=== PATIENT | female | born 1995 | race Caucasian/White ===

== ENCOUNTER 2020-06-03 14:21 | Emergency (ER) | payer MEDICAID, SELFPAY ==
--- NOTE | 2020-06-03 | XR_ITS ---
EXAMINATION: XR FINGER, RIGHT CLINICAL INFORMATION: Jammed right fourth digit with bruising and pain COMPARISON: None TECHNIQUE: 3 views of the right fourth digit. FINDINGS: The bones and soft tissues are normal. No fracture. Alignment is anatomic. Joint spaces are maintained. XR/XR finger RT min 2V IMPRESSION: Unremarkable right fourth digit exam.
[2020-06-03 14:27] VITALS: BP 117/87; PULSE 95; RESP 16; TEMP 36.8; O2SAT 100; BMI 19.3
--- NOTE | 2020-06-03 15:06 | ED.EXTPRO ---
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 States she can move it but it is very painful, she states initially was bleeding but it has stopped bleeding since then. She did take some Tylenol which helped with the pain. 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 Related Data Allergies Allergy/AdvReac Type Severity Reaction Status Date / Time [place] And Derivatives Allergy Unknown HIVES Unverified 02/04/20 18:48 [CITRUS] diphenhydramine Allergy Unknown THROAT Unverified 02/04/20 18:48 [From BENADRYL] CLOSED UP orange [ORANGE] Allergy Unknown HIVES Unverified 02/04/20 18:48 NERDS CANDY Allergy Unknown FACIAL Uncoded 02/04/20 18:48 SWELLING, HIVES Review of Systems Review of Systems: Yes all other systems are reviewed and are negative [facility] Past Medical History Medical History No known health problems Social History Social History Advance Directives: No Advance Directives Information Provided: Yes Physical Exam Vital Signs: Vital Signs: Last Vital Signs Temp 98.2 F 06/03/20 14:27 Pulse 95 06/03/20 14:27 Resp 16 06/03/20 14:27 BP 117/87 06/03/20 14:27 Pulse Ox 100 06/03/20 14:27 Body Mass Index 19.3 Const: General: cooperative, healthy appearing, comfortable, no acute distress and well developed Nutritional Appearance: average body habitus Orientation/consciousness: patient oriented x3 Resp: Effort & Inspection: normal respiratory effort and able to speak in complete sentences Neuro: General: patient oriented x3 Extrem: Other: Right 4th digit, small areas of ecchymosis, no bleeding or signs of infection noted. Patient is NVI and has full range of motion on all fingers and the wrist although with some pain when moving in the right 4th digit Course Course Course Narrative: Patient is a 24-year-old female who tripped and fell last night jamming her right 4th digit into the ground, it is bruised, however she has full range of motion and is and the eye, x-ray being done but not completed. 4pm negative for fracture, will juan-tape & discharge home MDM - Extremity (Nontraumatic) Imaging Data finger xray: Attestation: I personally reviewed and interpreted this imaging study as follows: My impression: Negative for fracture Radiologist's impression: [address] [address] XRay Report Signed Patient: Bryan JuarezR#: [id number] : 1995Acct:[id number] Age/Sex: Date: 06/03/20 Loc: .ED Attending Dr: Ordering Physician: Generic ED Physician Date of Service: 06/03/20 Procedure(s): XR finger RT min 2V Accession Number(s): [id number] cc: Generic ED Physician~ EXAMINATION: XR FINGER, RIGHT CLINICAL INFORMATION: Jammed right fourth digit with bruising and pain COMPARISON: None TECHNIQUE: 3 views of the right fourth digit. FINDINGS: The bones and soft tissues are normal. No fracture. Alignment is anatomic. Joint spaces are maintained. XR/XR finger RT min 2V IMPRESSION: Unremarkable right fourth digit exam. Discharge Plan Discharge Clinical Impression: Finger sprain Qualifiers: Encounter type: initial encounter Finger: ring finger Sprain of finger site: interphalangeal joint Laterality: right Qualified Code(s): S63.634A - Sprain of interphalangeal joint of right ring finger, initial encounter Patient Disposition: Home, Self-Care Instructions: Finger Sprain (ED) Referrals: Brenda Pepe MD [Primary Care Provider] - 2 days (Please follow-up with your PCP if not feeling better in the next 5-7 days)
== END 2020-06-03 16:20 | disposition home or self-care (01) ==
PROVIDERS: Emergency Provider Emergency Medicine; PCP Internal Medicine
DX: S63.634A Sprain of interphalangeal joint of right ring finger, initial encounter (principal); X50.1XXA Overexertion from prolonged static or awkward postures, initial encounter; Y93.89 Activity, other specified; Y92.9 Unspecified place or not applicable; Y99.9 Unspecified external cause status
CPT/HCPCS: 73140; 99283

== ENCOUNTER 2022-03-30 17:05 | Emergency (ER) | payer MEDICAID, SELFPAY ==
--- NOTE | ~2022-03-30 | XR_ITS ---
EXAMINATION: XR HAND, RIGHT CLINICAL INFORMATION: Evaluation of ganglion cyst COMPARISON: 06/03/2020 TECHNIQUE: PA, lateral, and oblique views of the right hand. FINDINGS: The bones and soft tissues are normal. No fracture. Alignment is anatomic. Joint spaces are maintained. No erosions or soft tissue calcifications. XR/XR hand RT min 3V IMPRESSION: No acute osseous abnormality of the right hand.
[2022-03-30 17:45] VITALS: BP 126/78; PULSE 65; RESP 18; TEMP 36.1; O2SAT 98; BMI 20.2
--- NOTE | 2022-03-30 17:59 | ED.GENADULT ---
HPI - General Adult General Chief complaint: General Medical Stated complaint: Cyst on finger Time Seen by Provider: 03/30/22 18:53 Source: patient Mode of arrival: ambulatory Limitations: no limitations History of Present Illness HPI narrative: Patient is a 26 year old assigned female at with no reported medical history presenting to the emergency department today with right hand pain. Patient states that in between her first and second digit, she has had a cyst get bigger and get smaller. Patient states that the cyst isn't there all the time. 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 Patient denies any dizziness, lightheadedness, abdominal pain, nausea, vomiting, fever, chills, blurry vision, double vision, loss of vision, chest pain, difficulty breathing, shortness of breath, back pain, night sweats, pain with urination, increased urinary frequency, increased urinary urgency, blood in her urine or stool, syncope or a near syncopal episode, recent trauma or falls, bowel incontinence, bladder incontinence, bowel retention, bladder retention, or any other complaints at this time. Onset (ago): day(s) Location: right and upper extremity Radiation: non-radiation Severity: mild Quality: dull Pain Consistency: intermittent Relieving factors: none Exacerbating factors: none Associated symptoms: denies other symptoms Treatments prior to arrival: none Related Data Previous Rx's Medication Instructions Recorded prednisone 20 mg tablet 20 mg PO DAILY 7 days #7 tabs 03/30/22 Allergies Allergy/AdvReac Type Severity Reaction Status Date / Time [place] And Derivatives Allergy Unknown HIVES Unverified 02/04/20 18:48 [CITRUS] diphenhydramine Allergy Unknown THROAT Unverified 02/04/20 18:48 [From BENADRYL] CLOSED UP orange [ORANGE] Allergy Unknown HIVES Unverified 02/04/20 18:48 NERDS CANDY Allergy Unknown FACIAL Uncoded 02/04/20 18:48 SWELLING, HIVES Review of Systems Constitutional: Constitutional: Reports no additional constitutional complaints, Denies chills, Denies fever(s) and Denies night sweats Eyes: Eyes: Reports no additional eye complaints, Denies blurry vision, Denies change in vision, Denies diplopia, Denies eye discharge, Denies loss of vision and Denies eye pain ENT: Denies dizziness Cardiovascular: Cardiovascular: Reports no additional cardiovascular complaints, Denies chest pain, Denies lightheadedness, Denies Loss of Consciousness and Denies dyspnea Respiratory: Respiratory: Reports no additional respiratory complaints and Denies dyspnea Gastrointestinal: Gastrointestinal: Reports no additional gastrointestinal complaints, Denies abdominal pain, Denies melena, Denies hematochezia, Denies change in bowel habits and Denies change in stool character Genitourinary: Genitourinary: Denies hematuria, Denies urinary frequency, Denies dysuria, Denies urinary incontinence, Denies urinary hesitancy and Denies urinary urgency Musculoskeletal: Musculoskeletal: Reports no additional musculoskeletal complaints, Denies numbness and Denies tingling Comments: right hand cyst Neurologic: Denies dizziness, Denies loss of vision, Denies numbness and Denies tingling Psychiatric: Psychiatric: Reports no additional psychiatric complaints Endocrine: Endocrine: Reports no additional endocrine complaints Hematologic/Lymphatic: Hematologic/Lymphatic: Reports no additional hematologic/lymphatic complaints Allergic/Immunologic: Allergic/Immunologic: Reports no additional allergic/immunologic complaints PMFSH Past Medical History Attestation statement: The following information was validated with the patient. Source: old records reviewed Medical History No known health problems Social History Social History Advance Directives: No Advance Directives Information Provided: Yes Physical Exam ED Vital Signs: Vital Signs - 24 hr 03/30/22 17:45 Temperature 97.0 F Pulse Rate 65 Respiratory Rate 18 Blood Pressure 126/78 Pulse Oximetry 98 Oxygen Delivery Method Room Air BMI result Body Mass Index 20.2 Const General: cooperative, no acute distress, alert and awake Nutritional Appearance: well nourished Orientation/consciousness: patient oriented x3 Limitations: no limitations HENMT Head: Yes normal to inspection and Yes atraumatic Ears: hearing grossly normal bilaterally and external ears normal General nose exam: Normal external nose present, no nasal discharge noted and no epistaxis Face and sinus: Yes normal facial exam, No abrasion and No laceration Mouth: Normal oral and palatal mucosa present, no drooling and no muffled voice Eyes General: appearance normal, both eyes and all related structures Periorbital: periorbital findings normal Eyelids: Yes eyelids normal Conjunctivae: conjunctivae normal Pupils: Equal, round and reactive pupils present EOM: EOMs intact bilaterally Neck Neck: Yes normal visual inspection, Yes full ROM and Yes no lymphadenopathy Chest Chest palpation & inspection: normal inspection of the chest Resp Effort & Inspection: normal respiratory effort and able to speak in complete sentences Auscultation: clear to auscultation bilaterally Cardio Rate: regular rate Rhythm: regular rhythm GI Inspection: Yes normal to inspection Neuro General: patient oriented x3 and moves all extremities Cranial nerves: Yes Equal, round and reactive pupils present Cognition (Neuro): normal cognition Motor exam (neuro): 5/5 motor strength present throughout Sensory Exam: Normal double simultaneous stimulation for sensation Coordination: [id number] test normal Extrem General: Yes normal to inspection, Yes full ROM and Yes capillary refill normal Psych Appearance: grossly normal Mental Status: mental status grossly normal Affect: normal affect Attitude: cooperative Thought process: Normal thought process present Thought content: Normal thought content present Insight: Good insight present (Psych) Course Course Course Narrative: RME completed by Jennifer Panchal PA-C at 1750. Right hand XR ordered. Suspicious for ganglion cyst. Patient placed back in waiting room awaiting room availability and imaging result. Medical Decision Making MDM Narrative Medical decision making narrative: Patient is a 26 year old assigned female at with no reported medical history presenting to the emergency department today with right hand pain. Patient's physical exam was unremarkable. Patient's right hand x-ray showed no acute process. Patient's clinical presentation is most consistent with a ganglion cyst. I explained my physical exam findings as well as all test results to the patient. I answered all questions asked by the patient. I stressed the importance of the patient taking her medication as prescribed. I stressed the importance of the patient following up with her primary care provider and an orthopedic provider. I stressed the importance of the patient returning to the emergency department immediately if her symptoms were to worsen or if she were to develop any dizziness, shortness of breath, difficulty breathing, chest pain, blurry vision, loss of vision, nausea, vomiting, abdominal pain, fever, chills, back pain, or any other complaints. Patient verbalized agreement and understanding with this treatment plan and discharge. Medical Records Medical records reviewed: Yes I reviewed the patient's medical records. Imaging Data Right hand x-ray: Attestation: I personally reviewed and interpreted this imaging study as follows: My impression: No acute process. Radiologist's impression: EXAMINATION: XR HAND, RIGHT CLINICAL INFORMATION: Evaluation of ganglion cyst? COMPARISON: 06/03/2020? TECHNIQUE: PA, lateral, and oblique views of the right hand. FINDINGS: The bones and soft tissues are normal. No fracture. Alignment is anatomic. Joint spaces are maintained. No erosions or soft tissue calcifications.? XR/XR hand RT min 3V IMPRESSION: No acute osseous abnormality of the right hand. Dictated By: Joey Chun MD Signed By: Electronically signed by Joey Chun MD 03/30/22 6026 Discharge Plan Discharge Clinical Impression: Ganglion cyst Patient Disposition: Home, Self-Care Additional Instructions: Follow up with your primary care provider and an orthopedic provider. Return to the emergency department immediately if your symptoms worsen or if you develop any dizziness, shortness of breath, difficulty breathing, chest pain, blurry vision, loss of vision, nausea, vomiting, abdominal pain, fever, chills, back pain, or any other complaints. Prescriptions: New prednisone 20 mg tablet 20 mg PO DAILY 7 Days Qty: 7 0RF Referrals: [facility] [Provider Group] (Call to establish and follow up with an orthopedic provider. ) Brenda Pepe MD [Primary Care Provider] - Stand Alone Forms: Work/School Release Print Language: Macedonian
== END 2022-03-30 19:06 | disposition home or self-care (01) ==
PROVIDERS: Emergency Provider Student in an Organized Health Care Education/Training Program; PCP Internal Medicine
DX: M67.441 Ganglion, right hand (principal); M79.641 Pain in right hand
CPT/HCPCS: 73130; 99282; 99283

== ENCOUNTER 2022-10-12 20:44 | Day surgery (SDC) | payer MEDICAID, SELFPAY ==
--- NOTE | ~2022-10-12 | US_ITS ---
EXAMINATION: US OBSTETRICAL ULTRASOUND CLINICAL INFORMATION: Follow-up ectopic. COMPARISON: Ultrasound OB 10/12/2022. Positive FDG LMP: Unknown. Gestational age by maternal dates is unknown. Estimated date of delivery by maternal dates is unknown. TECHNIQUE: Transabdominal and transvaginal imaging pelvis is performed. Since the last exam FINDINGS: Again visualized is a right adnexal masslike structure with a new gestational sac visualized. The pole is not seen at this time. There is free fluid in the cul-de-sac and right adnexa which has increased in size. Findings are strongly suspicious for an ectopic. The uterus is anteverted and unremarkable. The endometrial lining is normal measuring 4 mm. No intrauterine gestational sac visualized.. The uterus measures 7.2 x 3.3 x 4.5 cm and volume 55.98 mL. The right ovary measures 2.2 x 1.9 x 1.5 cm and appears unremarkable. Left ovary measures 3.4 x 2.6 x 3.3 cm and appears unremarkable. US/US OB pelvic and transvaginal IMPRESSION: Findings strongly suggestive of an right adnexal ectopic with increase in the right adnexal and cul-de-sac echogenic fluid. The uterus and ovaries are otherwise unremarkable. Results were conveyed to the largest Dr. Vivek Flanagan personally in the ER at 10:30 AM
--- NOTE | ~2022-10-12 | US_ITS ---
EXAMINATION: US OBSTETRICAL ULTRASOUND CLINICAL INFORMATION: Right pelvic pain and vaginal bleeding. LMP unknown. COMPARISON: CT abdomen/pelvis 08/24/2017. TECHNIQUE: Transabdominal and transvaginal images obtained with the patient's consent. FINDINGS: The uterus is anteverted and measures 7.2 x 3.6 x 4.6 cm. No evidence of intrauterine . The endometrium measures 0.5 cm in thickness. There is a 1.3 x 0.8 x 0.9 cm masslike observation in the region of the right adnexa, surrounded by multiple loops of bowel and from the ovary. There is no discrete associated vascularity within this masslike observation. The ovaries are normal in morphology with preserved flow at the moment of this examination. The right ovary measures 3.4 x 1.6 x 1.7 cm and the left ovary measures 3 x 2.3 x 2.5 cm. There is a small volume of free fluid in the cul-de-sac, simple in appearance. US/US OB pelvic and transvaginal IMPRESSION: No evidence of intrauterine gestation. Indeterminate masslike observation in the right adnexa. It is not clear if this represents a loop of bowel, and an ectopic is not excluded. Recommend correlation with quantitative beta-hCG and OB consultation for further management. A short-term follow-up ultrasound is recommended. This critical result was discussed with Dr Martin at 10/13/2022 12:35 AM and it was ascertained that the content and urgency of the report was understood at the time of direct communication.
[2022-10-12 20:51] VITALS: BP 145/78; PULSE 78; RESP 20; TEMP 36.3; O2SAT 98; BMI 22.2
[2022-10-12 21:07] LABS: MANUAL DIFF FLAG NO
[2022-10-12 21:11] LABS: Basophils Absolute Auto 0.1 X10*3/uL (0.0-0.2); Basophils Percent Auto 0.6 % (0-2); Eosinophils Absolute Auto 0.1 X10*3/uL (0.0-0.4); Eosinophils Percent Auto 0.8 % (0-4); Hematocrit 44.7 % (37.0-47.0); Hemoglobin 15.6 g/dl (12.0-16.0); Imm Gran Abs Auto 0.01 X10*3/uL (0.00-0.03); Imm Gran Pct Auto 0.1 % (0.0-0.4); Lymphocytes Percent Auto 22.9 % (20-40); Mean Corpuscular HGB Conc 34.9 g/dl (31.0-35.0); Mean Corpuscular Hemoglobin 33.2 pg (27.0-33.0); Mean Corpuscular Volume 95.1 fL (80.0-98.0); Monocytes Absolute Auto 0.5 X10*3/uL (0.1-1.2); Neutrophils Absolute Auto 6.1 x10*3/uL (2.0-8.3); Neutrophils Percent Auto 69.6 % (45-73); Platelet Count 277 X10*3/uL (160-400); Red Cell Distribution Width 11.4 % (11.0-16.0); White Blood Count 8.7 X10*3/uL (4.8-10.8)
[2022-10-12 21:20] LABS: Appearance Urine Cloudy; Color Urine Dark Yellow; Glucose Urine UA Negative (Negative); Leukocyte Esterase Urine Small (1+) (Negative); Nitrite Urine Positive (Negative); Specific Gravity - Urine >= 1.030 (1.005-1.025); UMIC TRIGGER UACC YES; Urine Blood Large (3+) (Negative); Urine Ketones 80 mg/dL (Negative); Urine Protein 30 (1+) mg/dL (Neg-Trace)
[2022-10-12 21:29] LABS: Anion Gap 12 (12-20); Blood Urea Nitrogen 8 mg/dL (9-16); Calcium 10.2 mg/dL (8.4-10.2); Carbon Dioxide 25 mmol/L (22-29); Chloride 104 mmol/L (96-108); Creatinine Clr Calc Pharmacy 76.5; Estimated Glomerular Filt Rate > 60; Glucose Random 102 mg/dL (60-115); Potassium 4.1 mmol/L (3.3-5.1); Sodium 137 mmol/L (135-145)
[2022-10-12 21:30] LABS: HCG Quantitative 219 mIU/mL
[2022-10-12 21:35] LABS: Bacteria Urine 4+ (None Seen); Hyaline Casts Urine 0-2 /LPF (0-2); RBC Urine 0-2 /HPF (0-2); UACC Culture Trigger YES; WBC Urine 21-50 /HPF (0-5)
[2022-10-12 22:58] VITALS: BP 136/67; PULSE 56; RESP 18; TEMP 36.7; O2SAT 98
[2022-10-12] MEDS: Nitrofurantoin Monohyd/M-Cryst 100 MG CAPSULE PO (23:44)
--- NOTE | 2022-10-12 23:52 | ED.PREGNANCY ---
HPI - General Chief complaint: Vaginal Bleeding Stated complaint: 4 Weeks /Abd pain and spotting Time Seen by Provider: 10/12/22 21:52 Source: patient Mode of arrival: ambulatory History of Present Illness HPI Narrative: 27-year-old female who presents with vaginal bleeding and right lower quadrant cramping for 3 days. Patient states that she took 2 home tests that were positive and reports that her low LMP-10/01/2022. She also reports that she has had some pain and burning on urination. Related Data Previous Rx's Medication Instructions Recorded prednisone 20 mg tablet 20 mg PO DAILY 7 days #7 tabs 03/30/22 nitrofurantoin 100 mg PO Q12H 7 days #14 caps 10/13/22 monohydrate/macrocrystals 100 mg capsule (Macrobid) Allergies Allergy/AdvReac Type Severity Reaction Status Date / Time [place] And Derivatives Allergy Unknown HIVES Verified 10/12/22 20:50 [CITRUS] diphenhydramine Allergy Unknown THROAT Verified 10/12/22 20:50 [From BENADRYL] CLOSED UP orange [ORANGE] Allergy Unknown HIVES Verified 10/12/22 20:50 NERDS CANDY Allergy Unknown FACIAL Uncoded 02/04/20 18:48 SWELLING, HIVES Review of Systems Review of Systems: Pertinent positives and negatives as stated in HPI [facility] Past Medical History Source: nursing notes reviewed Medical History No known health problems Social History Social History Smoked in Last 30 Days: Yes Use of substances other than those prescribed or required for medical reasons: No Advance Directives: No Advance Directives Information Provided: No Patient : Yes Physical Exam Vital Signs: Vital Signs: Last Vital Signs Temp 97.8 F 10/13/22 03:15 Pulse 48 L 10/13/22 03:15 Resp 12 10/13/22 03:15 BP 123/84 10/13/22 03:15 Pulse Ox 99 10/13/22 03:15 O2 Del Method Room Air 10/13/22 03:15 BMI result Body Mass Index 22.2 VITAL SIGNS: Reviewed. GENERAL: Well developed, well nourished, in no acute distress. HEAD: Normocephalic/atraumatic EYES: PERRLA, EOMI EARS: Ext canals without abnormality NOSE: Nares patent bilateral OROPHARYNX: no oral lesions noted, posterior pharynx clear NECK: Supple, no adenopathy LUNGS: Normal breath sounds. No adventitious sounds or accessory muscle use. SpO2<98> CARDIOVASCULAR: Regular rate and rhythm without noted murmurs ABDOMEN: Soft, tenderness in right lower quadrant, non-distended with bowel sounds. MUSCULOSKELETAL: No tenderness, deformities, or effusions noted on gross inspection. EXTREMITIES: No cyanosis, clubbing or edema. SKIN: Inspection of the skin reveals no rashes NEUROLOGIC: Alert and oriented x 4. Strength and sensation to light touch were grossly intact x 4. Medications Administered Discontinued Medications Generic Name Dose Route Start Last Admin Trade Name Freq PRN Reason Stop Dose Admin Acetaminophen 975 mg 10/13/22 00:45 10/13/22 01:16 Acetaminophen 325 Mg Tablet PO 10/13/22 00:46 975 mg ONCE ONE Administration Nitrofurantoin Macrocrystals 100 mg 10/12/22 23:10 10/12/22 23:44 Nitrofurantoin Monohyd/M-Cryst 100 Mg Capsule PO 10/12/22 23:11 100 mg ONCE ONE Administration Medical Decision Making Medical Decision Making MDM Narrative: 27-year-old female with beta hCG-219, although very low level and low clinical suspicion for a ruptured ectopic, will proceed with ultrasound, patient is neither febrile nor does she have rigors, urinalysis is nitrite positive in the blood that is observed is likely secondary to the vaginal bleeding. Otherwise I reviewed the remaining lab work which appears to be chronically stable. I reviewed all investigations and there are no findings to suggest acute appendicitis, ovarian torsion, bowel obstruction, there is only a small amount simple pelvic free fluid, patient received initial antibiotics as well as 975 mg of Tylenol. I discussed case with Dr. Simon who recommends keeping the patient overnight and repeating the ultrasound in the morning. I informed the patient all of the findings and she understands that our recommendation is that she stay overnight with us and be re-evaluated in the morning. She is agreeable with the plan. In the meantime, we are going to get Rh testing though she is less than 7 weeks at this time. Patient is B positive, ultrasound has been placed and imaging study will be signed out to the oncoming provider. Differential Diagnosis Please see the discussion above Lab Data 10/12/22 21:02 10/12/22 21:02 Labs: Lab Results 10/12/22 10/12/22 10/12/22 Range/Units 21:02 21:02 21:02 WBC 8.7 (4.8-10.8) X10*3/uL RBC 4.70 (4.20-5.50) X10*6/uL Hgb 15.6 (12.0-16.0) g/dl Hct 44.7 (37.0-47.0) % MCV 95.1 (80.0-98.0) fL MCH 33.2 H (27.0-33.0) pg MCHC 34.9 (31.0-35.0) g/dl RDW 11.4 (11.0-16.0) % Plt Count 277 (160-400) X10*3/uL MPV 10.0 (9.4-12.3) fL Immature Gran % (Auto) 0.1 (0.0-0.4) % Neut % (Auto) 69.6 (45-73) % Lymph % (Auto) 22.9 (20-40) % [place] % (Auto) 6.0 (2-11) % Eos % (Auto) 0.8 (0-4) % Baso % (Auto) 0.6 (0-2) % Lymph # (Auto) 2.0 (1.2-4.9) X10*3/uL [place] # (Auto) 0.5 (0.1-1.2) X10*3/uL Eos # (Auto) 0.1 (0.0-0.4) X10*3/uL Baso # (Auto) 0.1 (0.0-0.2) X10*3/uL Abs Immat Gran (auto) 0.01 (0.00-0.03) X10*3/uL Absolute Neuts (auto) 6.1 (2.0-8.3) x10*3/uL Absolute Nucleated RBC 0.000 (0.0-0.012) X10*3/uL Nucleated RBC % (auto) 0.0 (0.0-0.2) /100WBC Sodium 137 (135-145) mmol/L Potassium 4.1 (3.3-5.1) mmol/L Chloride 104 (96-108) mmol/L Carbon Dioxide 25 (22-29) mmol/L Anion Gap 12 (12-20) BUN 8 L (9-16) mg/dL Creatinine 0.76 (0.5-1.4) mg/dL Estim Creat Clear Calc 76.5 Estimated GFR > 60 Random Glucose 102 (60-115) mg/dL Calcium 10.2 (8.4-10.2) mg/dL Beta HCG, Quant 219 mIU/mL Urine Color Urine Appearance Urine pH (5.0-9.0) Ur Specific [place] (1.005-1.025) Urine Protein (Neg-Trace) mg/dL Urine Glucose (UA) (Negative) mg/dL Urine Ketones (Negative) mg/dL Urine Blood (Negative) Urine Nitrite (Negative) Ur Leukocyte Esterase (Negative) Urine RBC (0-2) /HPF Urine WBC (0-5) /HPF Ur Squamous Epith Cells (0-2) /HPF Urine Bacteria (None Seen) Hyaline Casts (0-2) /LPF Blood Type B Positive 10/12/22 Range/Units 21:05 WBC (4.8-10.8) X10*3/uL RBC (4.20-5.50) X10*6/uL Hgb (12.0-16.0) g/dl Hct (37.0-47.0) % MCV (80.0-98.0) fL MCH (27.0-33.0) pg MCHC (31.0-35.0) g/dl RDW (11.0-16.0) % Plt Count (160-400) X10*3/uL MPV (9.4-12.3) fL Immature Gran % (Auto) (0.0-0.4) % Neut % (Auto) (45-73) % Lymph % (Auto) (20-40) % [place] % (Auto) (2-11) % Eos % (Auto) (0-4) % Baso % (Auto) (0-2) % Lymph # (Auto) (1.2-4.9) X10*3/uL [place] # (Auto) (0.1-1.2) X10*3/uL Eos # (Auto) (0.0-0.4) X10*3/uL Baso # (Auto) (0.0-0.2) X10*3/uL Abs Immat Gran (auto) (0.00-0.03) X10*3/uL Absolute Neuts (auto) (2.0-8.3) x10*3/uL Absolute Nucleated RBC (0.0-0.012) X10*3/uL Nucleated RBC % (auto) (0.0-0.2) /100WBC Sodium (135-145) mmol/L Potassium (3.3-5.1) mmol/L Chloride (96-108) mmol/L Carbon Dioxide (22-29) mmol/L Anion Gap (12-20) BUN (9-16) mg/dL Creatinine (0.5-1.4) mg/dL Estim Creat Clear Calc Estimated GFR Random Glucose (60-115) mg/dL Calcium (8.4-10.2) mg/dL Beta HCG, Quant mIU/mL Urine Color Dark Yellow Urine Appearance Cloudy Urine pH 6.0 (5.0-9.0) Ur Specific [place] >= 1.030 H (1.005-1.025) Urine Protein 30 (1+) H (Neg-Trace) mg/dL Urine Glucose (UA) Negative (Negative) mg/dL Urine Ketones 80 (Negative) mg/dL Urine Blood Large (3+) H (Negative) Urine Nitrite Positive H (Negative) Ur Leukocyte Esterase Small (1+) H (Negative) Urine RBC 0-2 (0-2) /HPF Urine WBC 21-50 H (0-5) /HPF Ur Squamous Epith Cells 3-5 (0-2) /HPF Urine Bacteria 4+ (None Seen) Hyaline Casts 0-2 (0-2) /LPF Blood Type Discharge Plan Discharge Clinical Impression: Vaginal bleeding, UTI (urinary tract infection) Patient Disposition: Home, Self-Care Instructions: Threatened Miscarriage (ED) Additional Instructions: Please follow-up on Saturday morning for repeat ultrasound and repeat beta hCG (the enzyme). If your bleeding worsens or year abdominal discomfort is unable to be controlled by [id number] Tylenol and the completion of antibiotics please do not hesitate to return to the emergency room. Prescriptions: New nitrofurantoin monohyd/m-cryst [Macrobid] 100 mg capsule 100 mg PO Q12H 7 Days Qty: 14 0RF Rx Instructions: must administer with a meal/food No Action prednisone 20 mg tablet 20 mg PO DAILY 7 Days Qty: 7 0RF Referrals: Vivek Simon MD [Physician] - (Need repeat US and hcg)
[2022-10-13] VITALS (12 sets, daily range): BP systolic 123–148; BP diastolic 72–88; PULSE 48–77; RESP 12–19; TEMP 36.4–36.9; O2SAT 97–100
--- NOTE | 2022-10-13 00:53 | PM.GYNCN ---
COORDINATOR OF LIBRARY SERVICES - CN: HPI Data of Consult Consult date: 10/13/22 Primary Care Provider: Unknown Physician Consult Narrative Narrative: 12: 37 am ; I was consulted on Monse Vu who is a 27 year old female who presented to the emergency room with vaginal bleeding and right lower quadrant cramping for 3 days.? The patient had positive home tests, LMP-10/01/2022.? In addition the patient is complaining of dysuria. In the ER the following workup was done: H&H within normal, HCG 219, pelvic ultrasound done UA positive for nitrites and leukocyte esterase cc:: CC: OB [facility] Past Medical History Medical History No known health problems Social History Social History Advance Directives: No Advance Directives Information Provided: Yes Meds Allergies Allergy/AdvReac Type Severity Reaction Status Date / Time [place] And Derivatives Allergy Unknown HIVES Verified 10/15/22 10:56 [CITRUS] diphenhydramine Allergy Unknown THROAT Verified 10/15/22 10:56 [From BENADRYL] CLOSED UP orange [ORANGE] Allergy Unknown HIVES Verified 10/15/22 10:56 NERDS CANDY Allergy Unknown FACIAL Uncoded 10/15/22 10:56 SWELLING, HIVES COORDINATOR OF LIBRARY SERVICES Physical Exam Vitals Vital signs: Temp Pulse Resp BP Pulse Ox O2 Del Method 98.0 F 56 18 136/67 98 Room Air 10/12/22 22:58 10/12/22 22:58 10/12/22 22:58 10/12/22 22:58 10/12/22 22:58 10/12/22 22:58 BMI result Body Mass Index 22.2 Abdomen Auscultation/Inspection/Palpation: Tenderness, Guarding and Rebound tenderness Additional Comments: Abdominal exam reported by Dr. Martin as the last of following: Soft, tenderness in right lower quadrant, non-distended with bowel sounds COORDINATOR OF [employer]RARY [employer] - Results Labs 10/12/22 21:02 10/12/22 21:02 Labs: Short CBC 10/12/22 Range/Units 21:02 WBC 8.7 (4.8-10.8) X10*3/uL Hgb 15.6 (12.0-16.0) g/dl Hct 44.7 (37.0-47.0) % Plt Count 277 (160-400) X10*3/uL BMP 10/12/22 21:02 Sodium 137 Potassium 4.1 Chloride 104 Carbon Dioxide 25 BUN 8 L Creatinine 0.76 Calcium 10.2 Urine 10/12/22 Range/Units 21:05 Urine Color Dark Yellow Urine Appearance Cloudy Urine pH 6.0 (5.0-9.0) Ur Specific [place] >= 1.030 H (1.005-1.025) Urine Protein 30 (1+) H (Neg-Trace) mg/dL Urine Glucose (UA) Negative (Negative) mg/dL Imaging US - abdomen: Radiologist's impression: ITS Impressions Pelvic/Transvag US 10/12/22 23:40 IMPRESSION: No evidence of intrauterine gestation. Indeterminate masslike observation in the right adnexa. It is not clear if this represents a loop of bowel, and an ectopic is not excluded. Recommend correlation with quantitative beta-hCG and OB consultation for further management. A short-term follow-up ultrasound is recommended. This critical result was discussed with Dr Martin at 10/13/2022 12:35 AM and it was ascertained that the content and urgency of the report was understood at the time of direct communication. Assessment and Plan (1) First trimester bleeding: Status: Acute 12:[address] Martin the differential diagnosis including but not limited to SAB, ectopic , early IUP Recommended the following: Rh status with antibody screen and keep the patient in the emergency room for observation and repeat ultrasound to determine if there is a right adnexal mass or not and will treat accordingly. (2) UTI (urinary tract infection): Status: Acute Urine culture and Macrobid 100 mg p.o. b.i.d. for 5 days. Instructions to be given to patient to come back to the emergency room in case of fever above 100.4, nausea or vomiting or flank pain. (3) Ectopic : Status: Acute 10:30 am> blood type B positive. Repeat pelvic ultrasound preliminary read by Dr. Frankel showed right adnexal mass with gestational sac seen, fluid increased in the cul-de-sac and right adnexa. No fetus seen, no IUP with ectopic strongly suspected. Discussed with the patient her clinical scenario, ectopic with fluid increased in adnexa and cul de sac in size , with right lower quadrant abdominal tenderness , rebound and guarding, pointing towards possible rupture therefore, she is not a candidate for medical treatment given the possibility of possible rupture. Recommended laparoscopic salpingostomy possible partial salpingectomy, possible laparotomy. All the pros and cons were discussed with the patient including the risks including but not limited to: Risk of bleeding, infection, possible injury to bladder, bowel, ureter, bladder, possible injury to vessels and need for blood transfusion with all its risks including HIV, hepatitis-B and C and other blood borne pathogens, possible negative impact on future fertility. All questions answered, the patient verbalized understanding agreed with the plan and signed the consent. Time Spent With Patient Time: Total time managing care of this patient today ____ minutes.
[2022-10-13] MEDS: Acetaminophen 325 MG TABLET 975 MG PO (01:16)
--- NOTE | 2022-10-13 08:25 | PC.NURSE ---
assumed care of this patient. some vaginal bleeding noted with urination only, she has some cramping but mostly feels like gas
--- NOTE | 2022-10-13 12:10 | PC.NURSE ---
OR came and picked up patient for surgery, report given
--- NOTE | 2022-10-13 12:53 | P.CONAN_ITS ---
[facility] Active Problems Active Problems: All Active Problems (Updated 10/13/22 @ 10:39 by Vivek Simon MD) Ectopic (Acute) Hemoperitoneum due to rupture of right tubal ectopic (Acute) First trimester bleeding (Acute) UTI (urinary tract infection) (Acute) Past Medical History Medical History No known health problems Family History Family history of problems with anesthesia: No Surgical History History of Problems with Anesthesia: No Social History Social History Smoked in Last 30 Days: Yes Use of substances other than those prescribed or required for medical reasons: No Advance Directives: No Advance Directives Information Provided: No Patient : Yes Meds Allergies Allergy/AdvReac Type Severity Reaction Status Date / Time [place] And Derivatives Allergy Unknown HIVES Verified 10/12/22 20:50 [CITRUS] diphenhydramine Allergy Unknown THROAT Verified 10/12/22 20:50 [From BENADRYL] CLOSED UP orange [ORANGE] Allergy Unknown HIVES Verified 10/12/22 20:50 NERDS CANDY Allergy Unknown FACIAL Uncoded 02/04/20 18:48 SWELLING, HIVES Active Medications: Current Medications Fentanyl (Fentanyl Citrate/Pf 100 Mcg/2 Ml Vial) 50 mcg IVPUSH Q5M PRN; Protocol PRN Reason: Pain, Severe (Pain Scale 7-10) Ondansetron HCl (Ondansetron Hcl 4 Mg/2 Ml Vial) 4 mg IVPUSH ONCE PRN PRN Reason: Nausea and Vomiting Oxycodone HCl (Oxycodone Hcl Immed Release 5 Mg Tablet) 5 mg PO ONCE PRN PRN Reason: Pain, Severe (Pain Scale 7-10) Exam Exam Date and Time: October 13, 2022 1253 Height,Weight and Vital Signs: Height 4 ft 11 in Weight 49.895 kg Last Vital Signs Temp 98.2 F 10/13/22 10:23 Pulse 60 10/13/22 10:23 Resp 14 10/13/22 10:23 BP 148/78 H 10/13/22 10:23 Pulse Ox 98 10/13/22 10:23 O2 Del Method Room Air 10/13/22 10:23 Pertinent Lab Results Pertinent Lab Results: Laboratory Tests 05/10/12/22 10/12/22 21:02 21:02 21:02 WBC 8.7 RBC 4.70 Hgb 15.6 Hct 44.7 MCV 95.1 MCH 33.2 H MCHC 34.9 RDW 11.4 Plt Count 277 MPV 10.0 Immature Gran % (Auto) 0.1 Neut % (Auto) 69.6 Lymph % (Auto) 22.9 Hall % (Auto) 6.0 Eos % (Auto) 0.8 Baso % (Auto) 0.6 Lymph # (Auto) 2.0 Hall # (Auto) 0.5 Eos # (Auto) 0.1 Baso # (Auto) 0.1 Abs Immat Gran (auto) 0.01 Absolute Neuts (auto) 6.1 Absolute Nucleated RBC 0.000 Nucleated RBC % (auto) 0.0 Sodium 137 Potassium 4.1 Chloride 104 Carbon Dioxide 25 Anion Gap 12 BUN 8 L Creatinine 0.76 Estim Creat Clear Calc 76.5 Estimated GFR > 60 Random Glucose 102 Calcium 10.2 Beta HCG, Quant 219 Urine Color Urine Appearance Urine pH Ur Specific [place] Urine Protein Urine Glucose (UA) Urine Ketones Urine Blood Urine Nitrite Ur Leukocyte Esterase Urine RBC Urine WBC Ur Squamous Epith Cells Urine Bacteria Hyaline Casts Blood Type B Positive 10/12/22 21:05 WBC RBC Hgb Hct MCV MCH MCHC RDW Plt Count MPV Immature Gran % (Auto) Neut % (Auto) Lymph % (Auto) Hall % (Auto) Eos % (Auto) Baso % (Auto) Lymph # (Auto) Hall # (Auto) Eos # (Auto) Baso # (Auto) Abs Immat Gran (auto) Absolute Neuts (auto) Absolute Nucleated RBC Nucleated RBC % (auto) Sodium Potassium Chloride Carbon Dioxide Anion Gap BUN Creatinine Estim Creat Clear Calc Estimated GFR Random Glucose Calcium Beta HCG, Quant Urine Color Dark Yellow Urine Appearance Cloudy Urine pH 6.0 Ur Specific [place] >= 1.030 H Urine Protein 30 (1+) H Urine Glucose (UA) Negative Urine Ketones 80 Urine Blood Large (3+) H Urine Nitrite Positive H Ur Leukocyte Esterase Small (1+) H Urine RBC 0-2 Urine WBC 21-50 H Ur Squamous Epith Cells 3-5 Urine Bacteria 4+ Hyaline Casts 0-2 Blood Type Airway Mallampati Class: I TM Dist: >3cm Neck ROM: Full Lungs: clear Assessment and Plan Assessment Anesthesia Assessment: Anesthesia Plan Discussed and Chart Reviewed Final Anesthetic Review Family History of Problems with Anesthesia: No History of Problems with Anesthesia: No NPO: No (ate a piece of saltine about 3.5 hrs ago) ASA Class: II and Emergency Final Preanesthetic Review: No Changes in Pt Med Stat, Meds/Allgs Chart Reviewed, Consent Obtained/Reviewed and Anes Risks/Benef Reviewed Patient Risk: Intermediate Procedure Risk: Low Anesthetic Plan Anesthetic Plan: GA Disposition: Standard PACU
--- NOTE | 2022-10-13 13:47 | P.BOP_ITS ---
Brief Operative Note Date of Service: 10/13/22 Pre-op diagnosis: Right ectopic tubal with hemoperitoneum by ultrasound Post-op diagnosis: other ( 250 cc of hemoperitoneum with questionable tissues versus organized clot in the pelvis, bilateral distended fallopian tubes, extensive filmy adhesions from bilateral fallopian tubes to bilateral posterior uterus, no evidence of tubal rupture) Procedure: Diagnostic laparoscopy evacuation of hemoperitoneum and pelvic tissue versus organized clot possible aborted tubal Surgeon: Vivek Simon MD Anesthesia: GETA Was an Trust Manager Assistant used for this Procedure?: No Estimated blood loss (mL): 10 Pathology: other ( tissues from the pelvis possible organ ask clots versus aborted tubal in the pelvis) Condition: stable Disposition: PACU
--- NOTE | 2022-10-13 13:50 | W.PM.OPN ---
Operative Note Operative Note Date of Service: 10/13/22 Narrative: PREOPERATIVE DIAGNOSIS:?R tubal ectopic , increase in fluid in the cul-de-sac by ultrasound possible rupture POSTOPERATIVE DIAGNOSIS:? 250 cc of hemoperitoneum, tissues in the pelvis organized clots versus aborted tubal , bilateral distended fallopian tubes with filmy adhesions to the posterior uterus, bilateral normal ovaries with no evidence of ruptured cyst, no evidence of tubal rupture Procedure: diagnostic laparoscopy evacuation of hemoperitoneum and organized blood clots versus tissue possible aborted tubal QBL: Minimal Anesthesia: GETA SURGEON:? Vivek Simon MD?? Hospital Admitting Clerk:None Complications: None Pathology: organized blood clots versus tissue possible aborted tub DESCRIPTION OF PROCEDURE:?The patient was taken to the OR where general anesthesia was easily obtained. The patient was then prepped and draped in a sterile fashion and placed in dorsal lithotomy position. A speculum was introduced into the patient?s vagina for cervical visualization. a was introduced into the patient?s cervix. The single tooth tenaculum was then removed and hemostasis was assured?using pressure. a Haile catheter?was inserted and clear urine started draining. Gloves were changed to clean ones. Attention was then drawn to the abdomen where a 10 mm longitudinal incision was done intra umbilical and carried down all the way to the fascia, which was tented?up using 2 Ramon clamps and was nicked in the midline and then extended on both end of the incision?, them using 2 pick?ups the peritoneum?was entered with Metzenbaum scissors and under direct visualization, a 10 mm Little trocar was introduced into the patient?s abdomen. Once intraperitoneal placement was confirmed with direct visualization, pneumoperitoneum was started & was easily obtained.Then, two fingerbreadths above the pubic symphysis and towards the?right lower quadrant, under direct visualization, a 5 mm trocar was then introduced into the patient?s abdomen. and a 3rd one on the left?lower quadrant was placed?in a similar manner. The patient was placed in Trendelenburg position, Inspection revealed 250 cc of hemoperitoneum, normal bilateral ovaries with no evidence ovarian cyst rupture, bilateral distended fallopian tubes with filmy adhesions bilaterally the posterior uterus with no evidence of tubal rupture. Suction irrigation was done, there was 2 x 3 cm tissues in the posterior pelvis looking likeeither organized clot or aborted tubal . Specimen were then removed from the patient?s Pelvis using endo bag from the 10 mm trocar through the umbilicus. Copious irrigation was done. Once good hemostasis was noted from in the patient?s pelvis, is no evidence of bleeding, pneumoperitoneum was deflated and all trocars were removed. Infraumbilical fascia was closed with 0 Vicryl and interrupted suture. The skin was closed with 4-0 Vicryl. The Right and left?lower quadrant ports were closed with 0 Vicryl. Bupivicaine 0.25 10 cc were injected subcuticularly in the 3 incisions. Then speculum was put back in the vagina inspection revealed?hemostasis at the site of the tenaculum, the?sponge stick was removed?from the patient's vagina and Haile was draining clear urine was taken out too. Sponge, lap and needle counts were correct x2. The patient was taken to the recovery room in stable condition. HCG quantitative ordered stat in the recovery room dropped from 219 yesterday to 116 today. Discussed with the patient postoperatively after the patient awakened from anesthesia in the recovery the intraoperative findings showing no evidence of rupture, 250 cc of hemoperitoneum with a pelvic tissue either organized clot or aborted tubal . recommended repeat hCG in 48 hours follow it down to non levels. Instructions given to patient to come to the emergency room for hCG blood draw In 48 hours will check the results and treat according and follow-up in the office with hCG in another 24 hours. Signs and symptoms of tubal rupture /SAB were discussed with the patient she is to come back to emergency room in case of heavy bleeding, abdominal pain, incisional redness, temperature above 100.4, nausea or vomiting.
[2022-10-13 14:41] LABS: HCG Quantitative 116 mIU/mL
[2022-10-13] MEDS: Acetaminophen 1,000 MG/100 ML PIGGYBACK 400 MG IV (14:43)
== END 2022-10-13 15:19 | disposition home or self-care (01) ==
LOC: HO.ED 10-13 10:30 → HO.SSS 10-13 10:39
PROVIDERS: Obstetrics & Gynecology; Emergency Provider Student in an Organized Health Care Education/Training Program; Visit Provider Internal Medicine
PROC: (CPT 59150; principal; 2022-10-13 11:30)
DX: O00.90 Unspecified ectopic pregnancy without intrauterine pregnancy (principal); O20.9 Hemorrhage in early pregnancy, unspecified; O26.891 Other specified pregnancy related conditions, first trimester; K66.1 Hemoperitoneum; O23.41 Unspecified infection of urinary tract in pregnancy, first trimester; N39.0 Urinary tract infection, site not specified; Z3A.01 Less than 8 weeks gestation of pregnancy; Z88.8 Allergy status to other drugs, medicaments and biological substances
CPT/HCPCS: 59150; 36415; 76801; 76817; 80048; 81001; 84702; 85025; 86900; 86901; 87086; 88305; 99285; J0131; J1100; J2250; J2405; J2795; J3010

== ENCOUNTER 2022-10-15 10:54 | Emergency (ER) | payer MEDICAID, SELFPAY ==
[2022-10-15 10:57] VITALS: BP 144/77; PULSE 62; RESP 19; TEMP 36.6; O2SAT 98; BMI 22.2
--- NOTE | 2022-10-15 11:01 | ED_ITS ---
HPI - General Adult General Chief complaint: General Medical Stated complaint: Needs labs drawn (Zerbe) Time Seen by Provider: 10/15/22 11:00 Source: patient Mode of arrival: ambulatory Limitations: no limitations History of Present Illness HPI narrative: Patient is a 27 year old assigned female at with no reported medical history presenting to the emergency department today for follow up HCG levels after an ectopic on 10/13/2022. Patient states that she had an ectopic on 10/13/2022 and had a procedure to help with it and the OBGYN told her to come back to the ER today for a repeat HCG level. Patient states that she has had minimal incisional pain. Patient denies any dizziness, lightheadedness, nausea, vomiting, fever, chills, blurry vision, double vision, loss of vision, chest pain, difficulty breathing, shortness of breath, back pain, night sweats, pain with urination, increased urinary frequency, increased urinary urgency, blood in her stool, syncope or a near syncopal episode, recent trauma or falls, bowel incontinence, bladder incontinence, bowel retention, bladder retention, or any other complaints at this time. Related Data Previous Rx's Medication Instructions Recorded prednisone 20 mg tablet 20 mg PO DAILY 7 days #7 tabs 03/30/22 nitrofurantoin 100 mg PO Q12H 7 days #14 caps 10/13/22 monohydrate/macrocrystals 100 mg capsule (Macrobid) oxycodone 5 mg tablet 5 mg PO ONCE PRN Pain, Severe 10/13/22 (Pain Scale 7-10) #20 tabs Allergies Allergy/AdvReac Type Severity Reaction Status Date / Time [place] And Derivatives Allergy Unknown HIVES Verified 10/15/22 10:56 [CITRUS] diphenhydramine Allergy Unknown THROAT Verified 10/15/22 10:56 [From BENADRYL] CLOSED UP orange [ORANGE] Allergy Unknown HIVES Verified 10/15/22 10:56 NERDS CANDY Allergy Unknown FACIAL Uncoded 10/15/22 10:56 SWELLING, HIVES Review of Systems Constitutional: Constitutional: Reports no additional constitutional complaints, Denies chills, Denies fever(s) and Denies night sweats Eyes: Eyes: Reports no additional eye complaints, Denies blurry vision, Denies change in vision, Denies diplopia, Denies eye discharge, Denies loss of vision and Denies eye pain ENT: Denies dizziness Cardiovascular: Cardiovascular: Reports no additional cardiovascular complaints, Denies chest pain, Denies lightheadedness, Denies Loss of Consciousness and Denies dyspnea Respiratory: Respiratory: Reports no additional respiratory complaints and Denies dyspnea Gastrointestinal: Gastrointestinal: Reports no additional gastrointestinal complaints, Denies abdominal pain, Denies melena, Denies hematochezia, Denies change in bowel habits and Denies change in stool character Genitourinary: Genitourinary: Denies hematuria, Denies urinary frequency, Denies dysuria, Denies urinary incontinence, Denies urinary hesitancy and Denies urinary urgency Musculoskeletal: Musculoskeletal: Reports no additional musculoskeletal complaints, Denies numbness and Denies tingling Neurologic: Denies dizziness, Denies loss of vision, Denies numbness and Denies tingling Psychiatric: Psychiatric: Reports no additional psychiatric complaints Endocrine: Endocrine: Reports no additional endocrine complaints Hematologic/Lymphatic: Hematologic/Lymphatic: Reports no additional hematologic/lymphatic complaints Allergic/Immunologic: Allergic/Immunologic: Reports no additional allergic/immunologic complaints PMFSH Past Medical History Attestation statement: The following information was validated with the patient. Source: old records reviewed and nursing notes reviewed Medical History No known health problems Social History Social History Advance Directives: No Advance Directives Information Provided: Yes Physical Exam ED Vital Signs: Vital Signs - 24 hr 10/15/22 10:57 Temperature 98 F Pulse Rate 62 Respiratory Rate 19 Blood Pressure 144/77 H Pulse Oximetry 98 Oxygen Delivery Method Room Air BMI result Body Mass Index 22.2 Const General: cooperative, no acute distress, alert and awake Nutritional Appearance: well nourished Orientation/consciousness: patient oriented x3 Limitations: no limitations HENMT Head: Yes normal to inspection and Yes atraumatic Ears: hearing grossly normal bilaterally and external ears normal General nose exam: Normal external nose present, no nasal discharge noted and no epistaxis Face and sinus: Yes normal facial exam, No abrasion and No laceration Mouth: Normal oral and palatal mucosa present, no drooling and no muffled voice Eyes General: appearance normal, both eyes and all related structures Periorbital: periorbital findings normal Eyelids: Yes eyelids normal Conjunctivae: conjunctivae normal Pupils: Equal, round and reactive pupils present EOM: EOMs intact bilaterally Neck Neck: Yes normal visual inspection, Yes full ROM and Yes no lymphadenopathy Chest Chest palpation & inspection: normal inspection of the chest Resp Effort & Inspection: normal respiratory effort and able to speak in complete sentences GI Inspection: Yes normal to inspection Palpation (GI): Soft to palpation, not firm, nontender, no guarding and not rigid Neuro General: patient oriented x3 and moves all extremities Cranial nerves: Yes Equal, round and reactive pupils present Cognition (Neuro): normal cognition Motor exam (neuro): 5/5 motor strength present throughout Sensory Exam: Normal double simultaneous stimulation for sensation Coordination: [id number] test normal Extrem General: Yes normal to inspection, Yes full ROM and Yes capillary refill normal Psych Appearance: grossly normal Mental Status: mental status grossly normal Affect: normal affect Attitude: cooperative Thought process: Normal thought process present Thought content: Normal thought content present Insight: Good insight present (Psych) Medical Decision Making Medical Decision Making MDM Narrative: Patient is a 27 year old assigned female at with no reported medical history presenting to the emergency department today for HCG repeat. Patient's physical exam was unremarkable. Patient's blood work showed an HCG of 211 which is higher than her previous os 116 on 10/13/2022. I spoke with OBGYN call center operations manager who came and examined the patient. They decided that the patient would undergo methotrexate treatment. OBGYN call center operations manager obtained all appropriate consents and f illed out all appropriate forms. Patient is to have a repeat HCG drawn on 10/18/2022. I explained my physical exam findings as well as all test results to the patient. I answered all questions asked by the patient. I stressed the importance of the patient taking her medication as prescribed. I stressed the importance of the patient following up with her primary care provider and an OBGYN. I stressed the importance of the patient returning to the emergency department immediately if her symptoms were to worsen or if she were to develop any dizziness, shortness of breath, difficulty breathing, chest pain, blurry vision, loss of vision, nausea, vomiting, abdominal pain, fever, chills, back pain, or any other complaints. Patient verbalized agreement and understanding with this treatment plan and discharge. Differential Diagnosis Differential Diagnoses: The differential diagnosis associated with the presentation includes persistent ectopic Consult Healthcare Provider Management of the patient was discussed with: Mint Machine Operator (spoke to OBHELENN as note d in the MDM portion of this chart. ) Lab Data MDM Lab Attestation statement: I reviewed the patient's lab results. 10/15/22 11:58 10/15/22 11:58 Labs: Lab Results 10/15/22 10/15/22 10/15/22 Range/Units 11:14 11:58 11:58 WBC 6.9 (4.8-10.8) X10*3/uL RBC 4.57 (4.20-5.50) X10*6/uL Hgb 15.2 (12.0-16.0) g/dl Hct 43.8 (37.0-47.0) % MCV 95.8 (80.0-98.0) fL MCH 33.3 H (27.0-33.0) pg MCHC 34.7 (31.0-35.0) g/dl RDW 11.5 (11.0-16.0) % Plt Count 252 (160-400) X10*3/uL MPV 10.1 (9.4-12.3) fL Immature Gran % (Auto) 0.4 (0.0-0.4) % Neut % (Auto) 74.6 H (45-73) % Lymph % (Auto) 16.4 L (20-40) % [place] % (Auto) 7.4 (2-11) % Eos % (Auto) 0.6 (0-4) % Baso % (Auto) 0.6 (0-2) % Lymph # (Auto) 1.1 L (1.2-4.9) X10*3/uL [place] # (Auto) 0.5 (0.1-1.2) X10*3/uL Eos # (Auto) 0.0 (0.0-0.4) X10*3/uL Baso # (Auto) 0.0 (0.0-0.2) X10*3/uL Abs Immat Gran (auto) 0.03 (0.00-0.03) X10*3/uL Absolute Neuts (auto) 5.1 (2.0-8.3) x10*3/uL Absolute Nucleated RBC 0.000 (0.0-0.012) X10*3/uL Nucleated RBC % (auto) 0.0 (0.0-0.2) /100WBC PT 10.2 (10.0-13.1) SEC INR 0.9 (0.9-1.1) APTT 27.4 (26.0-36.4) SEC Sodium (135-145) mmol/L Potassium (3.3-5.1) mmol/L Chloride (96-108) mmol/L Carbon Dioxide (22-29) mmol/L Anion Gap (12-20) BUN (9-16) mg/dL Creatinine (0.5-1.4) mg/dL Estim Creat Clear Calc Estimated GFR Random Glucose (60-115) mg/dL Calcium (8.4-10.2) mg/dL Total Bilirubin (0.0-1.0) mg/dL AST (5-31) U/L ALT (0-31) U/L Alkaline Phosphatase (39-117) U/L Total Protein (6.5-8.0) g/dL Albumin (3.5-5.0) g/dL Beta HCG, Quant 211 mIU/mL 10/15/22 Range/Units 11:58 WBC (4.8-10.8) X10*3/uL RBC (4.20-5.50) X10*6/uL Hgb (12.0-16.0) g/dl Hct (37.0-47.0) % MCV (80.0-98.0) fL MCH (27.0-33.0) pg MCHC (31.0-35.0) g/dl RDW (11.0-16.0) % Plt Count (160-400) X10*3/uL MPV (9.4-12.3) fL Immature Gran % (Auto) (0.0-0.4) % Neut % (Auto) (45-73) % Lymph % (Auto) (20-40) % [place] % (Auto) (2-11) % Eos % (Auto) (0-4) % Baso % (Auto) (0-2) % Lymph # (Auto) (1.2-4.9) X10*3/uL [place] # (Auto) (0.1-1.2) X10*3/uL Eos # (Auto) (0.0-0.4) X10*3/uL Baso # (Auto) (0.0-0.2) X10*3/uL Abs Immat Gran (auto) (0.00-0.03) X10*3/uL Absolute Neuts (auto) (2.0-8.3) x10*3/uL Absolute Nucleated RBC (0.0-0.012) X10*3/uL Nucleated RBC % (auto) (0.0-0.2) /100WBC PT (10.0-13.1) SEC INR (0.9-1.1) APTT (26.0-36.4) SEC Sodium 140 (135-145) mmol/L Potassium 4.2 (3.3-5.1) mmol/L Chloride 104 (96-108) mmol/L Carbon Dioxide 26 (22-29) mmol/L Anion Gap 14 (12-20) BUN 9 (9-16) mg/dL Creatinine 0.81 (0.5-1.4) mg/dL Estim Creat Clear Calc 71.7 Estimated GFR > 60 Random Glucose 101 (60-115) mg/dL Calcium 10.4 H (8.4-10.2) mg/dL Total Bilirubin 1.7 H (0.0-1.0) mg/dL AST 17 (5-31) U/L ALT 16 (0-31) U/L Alkaline Phosphatase 66 (39-117) U/L Total Protein 7.5 (6.5-8.0) g/dL Albumin 5.0 (3.5-5.0) g/dL Beta HCG, Quant mIU/mL Critical Care Time Critical Care Time Critical Care Time: Yes Total Critical Care Time: 30 Attestation: I spent 30 minutes of Critical Care Time with this patient. This does not i nclude time spent on separately reported billable procedures. Discharge Plan Discharge Clinical Impression: , ectopic Patient Disposition: Home, Self-Care Instructions: Ectopic (DC) Additional Instructions: Take the medication the OBGYN prescribed as written. Follow up with your primary care provider and your OBGYN. Return to the emergency department immediately if your symptoms worsen or if you develop any dizziness, shortness of breath, difficulty breathing, chest pain, blurry vision, loss of vision, nausea, vomiting, abdominal pain, fever, chills, back pain, or any other complaints. Prescriptions: No Action prednisone 20 mg tablet 20 mg PO DAILY 7 Days Qty: 7 0RF nitrofurantoin monohyd/m-cryst [Macrobid] 100 mg capsule 100 mg PO Q12H 7 Days Qty: 14 0RF Rx Instructions: must administer with a meal/food oxycodone 5 mg Tablet 5 mg PO ONCE PRN (Reason: Pain, Severe (Pain Scale 7-10)) Qty: 20 0RF Rx Instructions: Partial Fill upon patient request. Referrals: [facility] [Primary Care Provider] - Vivek Simon MD [Physician] - Stand Alone Forms: Work/School Release Print Language: American
[2022-10-15 11:45] LABS: HCG Quantitative 211 mIU/mL
[2022-10-15 12:03] LABS: MANUAL DIFF FLAG NO
[2022-10-15 12:05] LABS: Basophils Percent Auto 0.6 % (0-2); Eosinophils Percent Auto 0.6 % (0-4); Hematocrit 43.8 % (37.0-47.0); Hemoglobin 15.2 g/dl (12.0-16.0); Imm Gran Abs Auto 0.03 X10*3/uL (0.00-0.03); Imm Gran Pct Auto 0.4 % (0.0-0.4); Lymphocytes Absolute Auto 1.1 X10*3/uL (1.2-4.9); Lymphocytes Percent Auto 16.4 % (20-40); Mean Corpuscular HGB Conc 34.7 g/dl (31.0-35.0); Mean Corpuscular Hemoglobin 33.3 pg (27.0-33.0); Mean Corpuscular Volume 95.8 fL (80.0-98.0); Mean Platelet Volume 10.1 fL (9.4-12.3); Monocytes Absolute Auto 0.5 X10*3/uL (0.1-1.2); Monocytes Percent Auto 7.4 % (2-11); Neutrophils Absolute Auto 5.1 x10*3/uL (2.0-8.3); Neutrophils Percent Auto 74.6 % (45-73); Platelet Count 252 X10*3/uL (160-400); Red Blood Count 4.57 X10*6/uL (4.20-5.50); Red Cell Distribution Width 11.5 % (11.0-16.0); White Blood Count 6.9 X10*3/uL (4.8-10.8)
--- NOTE | 2022-10-15 12:07 | PM.GYNCN ---
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 The pole is not seen at this time. There is free fluid in the cul-de-sac and right adnexa which has increased in size. Findings are strongly suspicious for an ectopic. The uterus is anteverted and unremarkable. The endometrial lining is normal measuring 4 mm. No intrauterine gestational sac visualized.. The uterus measures 7.2 x 3.3 x 4.5 cm and volume 55.98 mL. The right ovary measures 2.2 x 1.9 x 1.5 cm and appears unremarkable. Left ovary measures 3.4 x 2.6 x 3.3 cm and appears unremarkable. UA positive for nitrites and leukocyte esterase The patient had significant abnormal exam showing right lower quadrant tenderness, guarding and rebound, so a diagnostic laparoscopy was done which showed 250 cc of hemoperitoneum with normal bilateral ovaries with no evidence of ruptured ovarian cyst, and possible tissues in the pelvis either organized clots versus aborted ectopic with no evidence of tubal rupture, evacuation of pelvic tissues and hemoperitoneum was done there was no additional bleeding, post operative hCG and done in the recovery room was 116, the patient was discharged home to be followed up in 48 hours repeat hCG and signs and symptoms of ruptured ectopic in addition to Macrobid for UTI. Blood type is B positive Today the patient stenting to the emergency room for repeat hCG with minimal complaint no abdominal pain no vaginal bleeding or any other concerns. HCG repeated today was 211, cbc, pltrs, cr, ast/alt wnl cc:: CC[facility] Past Medical History Medical History No known health problems Social History Social History Advance Directives: No Advance Directives Information Provided: Yes Meds Allergies Allergy/AdvReac Type Severity Reaction Status Date / Time [place] And Derivatives Allergy Unknown HIVES Verified 10/15/22 10:56 [CITRUS] diphenhydramine Allergy Unknown THROAT Verified 10/15/22 10:56 [From BENADRYL] CLOSED UP orange [ORANGE] Allergy Unknown HIVES Verified 10/15/22 10:56 NERDS CANDY Allergy Unknown FACIAL Uncoded 10/15/22 10:56 SWELLING, HIVES 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 Physical Exam Vitals Vital signs: Temp Pulse Resp BP Pulse Ox O2 Del Method 98 F 62 19 144/77 H 98 Room Air 10/15/22 10:57 10/15/22 10:57 10/15/22 10:57 10/15/22 10:57 10/15/22 10:57 10/15/22 10:57 BMI result Body Mass Index 22.2 Abdomen Auscultation/Inspection/Palpation: Normal bowel sounds, Soft and No tenderness 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 - Results Labs 10/15/22 11:58 10/15/22 11:58 Labs: Short CBC 10/15/22 Range/Units 11:58 WBC 6.9 (4.8-10.8) X10*3/uL Hgb 15.2 (12.0-16.0) g/dl Hct 43.8 (37.0-47.0) % Plt Count 252 (160-400) X10*3/uL Assessment and Plan (1) Ectopic : Status: Acute Plan Discussed with the patient the rise of HCG increasing the suspicion of persistent ectopic although nonviable intrauterine or a viable intrauterine is still a possibility. Discussed with the patient treatment options including the following: Option 1, expected management, repeat HCG every 48 hours with warning signs of SAB versus ectopic, waiting for the clinical picture is a little more clear to the diagnosis of ectopic versus intrauterine with the risk of delaying diagnosis of an ectopic intra-abdominal rupture and bleeding and risk of morbidity mortality and benefit of preventing methotrexate treatment and its possible exposure of a possible intrauterine and risk of teratogenicity and SAB. Option 2, to start with Suction D and C to rule out intrauterine followed by HCG levels and determined SAB versus ectopic, the risk of this approach being termination of a live intrauterine that is early undetected by ultrasound, the risk being delayed diagnosis of ectopic and/or potential consequences. Option 3 is methotrexate treatment; All the pros and cons risks and benefits of this approach were discussed with the patient including but not limited to, failure rate of MTX ~15%, possible exposure of methotrexate teratogenicity to an early intrauterine not diagnosed by ultrasound with the risk of SAB and severe deformities, possibility of a early intrauterine . The patient decided to proceed with methotrexate treatment. Discussed with the patient the common side effects of the medication, including skin rash, sensitivity to the sun, indigestion, nausea, sore mouth were discussed with the patient. Less common side effects (occurring in less than 2% of patients) were also discussed a drop in blood cell counts or temporary elevation in liver enzymes. All questions were answered and recommended follow up reviewed. Plan methotrexate 50 mg/m2 BSA x 1.44 m2 BSA = 72 mg methotrexate IM x 1. Patient information sheet was given to the patient and instructed patient not to have intercourse or perform strenuous exercises or activities avoid sun exposure. The patient was given to the instructions to follow up with HCG day 4 and 7 and follow with an appointment day 7. Signs and symptoms of ruptured ectopic discussed with the patient, she is to call or go to the ER if abdominal pain occurs, Otherwise will follow up with HCG day 4 and repeat HCG day 7 and a follow-up appointment. All questions were answered pt verbalized understanding. Time Spent With Patient Time: Total time managing care of this patient today ____ minutes.
[2022-10-15 12:11] LABS: INTERNATIONAL NORM RATIO 0.9 (0.9-1.1); Prothrombin Time 10.2 SEC (10.0-13.1)
[2022-10-15 12:14] LABS: Partial Thromboplastin Time 27.4 SEC (26.0-36.4)
[2022-10-15 12:22] LABS: Alanine Aminotransferase 16 U/L (0-31); Alkaline Phosphatase 66 U/L (39-117); Anion Gap 14 (12-20); Aspartate Amino Transferase 17 U/L (5-31); Bilirubin Total 1.7 mg/dL (0.0-1.0); Blood Urea Nitrogen 9 mg/dL (9-16); Calcium 10.4 mg/dL (8.4-10.2); Carbon Dioxide 26 mmol/L (22-29); Chloride 104 mmol/L (96-108); Creatinine Clr Calc Pharmacy 71.7; Estimated Glomerular Filt Rate > 60; Glucose Random 101 mg/dL (60-115); Potassium 4.2 mmol/L (3.3-5.1); Sodium 140 mmol/L (135-145); Total Protein 7.5 g/dL (6.5-8.0)
[2022-10-15 14:15] VITALS: BP 126/73; PULSE 55; RESP 16; TEMP 36.8; O2SAT 99
--- NOTE | 2022-10-15 14:22 | PC.NURSE ---
methotrexate administered left and right thigh, pt tolerated well, will follow up outpt for repeat lab work.
== END 2022-10-15 14:25 | disposition home or self-care (01) ==
PROVIDERS: Physician Assistant Medical; Emergency Provider Emergency Medicine
DX: O00.90 Unspecified ectopic pregnancy without intrauterine pregnancy (principal); O08.9 Unspecified complication following an ectopic and molar pregnancy; Z79.899 Other long term (current) drug therapy
CPT/HCPCS: 36415; 80053; 84702; 85025; 85610; 85730; 96372; 99284; J9250

== ENCOUNTER 2022-10-18 12:56 | Outpatient (REF) | payer MEDICAID, SELFPAY ==
[2022-10-18 14:11] LABS: HCG Quantitative 308 mIU/mL
[2022-10-19 05:46] LABS: CT PCR NOT DETECTED (Not Detect.); NG PCR NOT DETECTED (Not Detect.)
== END 2022-10-18 12:57 | disposition home or self-care (01) ==
LOC: HO.LAB 12:56
PROVIDERS: PCP Internal Medicine; Visit Provider Obstetrics & Gynecology
DX: O00.90 Unspecified ectopic pregnancy without intrauterine pregnancy (principal)
CPT/HCPCS: 0353U; 36415; 84702; 99212

== ENCOUNTER 2022-10-18 15:10 | Outpatient (REF) | payer MEDICAID, SELFPAY | END 2022-10-18 15:11 | disposition home or self-care (01) | LOC: HO.LNP 15:10 | PROVIDERS: Visit Provider Obstetrics & Gynecology | DX: Z13.89 Encounter for screening for other disorder (principal) ==

== ENCOUNTER 2022-10-21 12:09 | Outpatient (REF) | payer MEDICAID, SELFPAY ==
[2022-10-21 12:57] LABS: HCG Quantitative 260 mIU/mL
== END 2022-10-21 12:10 | disposition home or self-care (01) ==
LOC: HO.LAB 12:09
PROVIDERS: Visit Provider Obstetrics & Gynecology
DX: O00.90 Unspecified ectopic pregnancy without intrauterine pregnancy (principal)
CPT/HCPCS: 36415; 84702

== ENCOUNTER 2022-10-25 14:08 | Outpatient (REF) | payer MEDICAID, SELFPAY ==
[2022-10-25 15:11] LABS: HCG Quantitative 142 mIU/mL
== END 2022-10-25 14:09 | disposition home or self-care (01) ==
LOC: HO.LAB 14:08
PROVIDERS: PCP Internal Medicine; Visit Provider Obstetrics & Gynecology
DX: O00.90 Unspecified ectopic pregnancy without intrauterine pregnancy (principal)
CPT/HCPCS: 36415; 84702; 99212

== ENCOUNTER 2022-11-01 15:15 | Outpatient (REF) | payer MEDICAID, SELFPAY ==
[2022-11-01 16:23] LABS: HCG Quantitative < 2 mIU/mL
== END 2022-11-01 15:16 | disposition home or self-care (01) ==
LOC: HO.LAB 15:15
PROVIDERS: Visit Provider Obstetrics & Gynecology
DX: O00.90 Unspecified ectopic pregnancy without intrauterine pregnancy (principal)
CPT/HCPCS: 36415; 84702

== ENCOUNTER 2022-11-04 01:26 | Emergency (ER) | payer MEDICAID, SELFPAY ==
[2022-11-04 01:29] VITALS: BP 138/94; PULSE 88; RESP 18; TEMP 36.1; O2SAT 99; BMI 22.2
== END 2022-11-04 02:02 | disposition left against medical advice (07) ==
PROVIDERS: Emergency Provider Emergency Medicine
DX: O08.1 Delayed or excessive hemorrhage following ectopic and molar pregnancy (principal)
CPT/HCPCS: 99281

== ENCOUNTER 2023-02-01 12:51 | Emergency (ER) | payer MEDICAID, SELFPAY ==
--- NOTE | ~2023-02-01 | US_ITS ---
EXAMINATION: US OBSTETRICAL ULTRASOUND CLINICAL INFORMATION: Positive hCG 17 1999 151, history of ectopic, spotting, nausea and cramping COMPARISON: None available. LMP: 12/27/2022. Gestational age by maternal dates is 5 weeks 1 day. Estimated date of delivery by maternal dates is 10/03/2023. TECHNIQUE: . Permanent documented images obtained and cine loops provided FINDINGS: There is a single intrauterine gestational sac with visible yolk sac, embryo/fetus, and cardiac activity. There is no significant subchorionic hemorrhage or hematoma. HR: 80 beats per minute. CRL (crown rump length): 0.23 cm (5 weeks 6 days +/- 4 days). BERNICE (estimated date of delivery): 09/28/2023 +/- 4 days. MATERNAL ADNEXA: The right maternal ovary measures 2.8 x 1.2 x 1.7. The left maternal ovary measures 2.3 x 2.9 x 2.1. There is no significant maternal adnexal mass. No maternal pelvic ascites. US/US OB pelvic and transvaginal IMPRESSION: 1. Single intrauterine gestation with ultrasound gestational age of 5 weeks 6 days +/- 4 days. 2. Estimated date of delivery is 09/28/2023 +/- 4 days. 3. No maternal adnexal mass or pelvic ascites.
[2023-02-01 13:12] VITALS: BP 134/79; PULSE 75; RESP 15; TEMP 36.6; O2SAT 98; BMI 22.1
--- NOTE | 2023-02-01 13:12 | ED.GENADULT ---
HPI - General Adult General Chief complaint: Vaginal Bleeding Stated complaint: cramping/ nausea/ spotting Related Data Allergies Allergy/AdvReac Type Severity Reaction Status Date / Time [place] And Derivatives Allergy Unknown HIVES Verified 10/25/22 15:51 [CITRUS] diphenhydramine Allergy Unknown THROAT Verified 10/25/22 15:51 [From BENADRYL] CLOSED UP orange [ORANGE] Allergy Unknown HIVES Verified 10/25/22 15:51 NERDS CANDY Allergy Unknown FACIAL Uncoded 10/25/22 15:51 SWELLING, HIVES PMFSH Past Medical History Medical History No known health problems Social History Social History Advance Directives: No Advance Directives Information Provided: No Physical Exam ED Vital Signs: Vital Signs - 24 hr 02/01/23 13:12 Temperature 97.9 F Pulse Rate 75 Respiratory Rate 15 Blood Pressure 134/79 Pulse Oximetry 98 Oxygen Delivery Method Room Air BMI result Body Mass Index 22.1 Course Course Course Narrative: This is a rapid medical exam: Additional HPI, ROS, PE not included below will be deferred to primary provider. Patient is a 27-year-old female with history of ruptured ectopic in September of this year presenting to the emergency department with complaint of right lower abdominal cramping and pain, lightheadedness, nausea, vomiting, lower back pain and light pink spotting. States she had surgery as well as methotrexate with her prior ectopic. Had 2 positive tests this am. Plan: labs, UA, T&S, ultrasound Medical Decision Making Lab Data 02/01/23 14:19 02/01/23 14:19 Labs: Lab Results 02/01/23 02/01/23 Range/Units 14:18 14:19 WBC 9.5 (4.8-10.8) X10*3/uL RBC 4.53 (4.20-5.50) X10*6/uL Hgb 15.1 (12.0-16.0) g/dl Hct 41.8 (37.0-47.0) % MCV 92.3 (80.0-98.0) fL MCH 33.3 H (27.0-33.0) pg MCHC 36.1 H (31.0-35.0) g/dl RDW 11.1 (11.0-16.0) % Plt Count 282 (160-400) X10*3/uL MPV 10.1 (9.4-12.3) fL Immature Gran % (Auto) 0.3 (0.0-0.4) % Neut % (Auto) 80.1 H (45-73) % Lymph % (Auto) 12.8 L (20-40) % [place] % (Auto) 6.2 (2-11) % Eos % (Auto) 0.4 (0-4) % Baso % (Auto) 0.2 (0-2) % Lymph # (Auto) 1.2 (1.2-4.9) X10*3/uL [place] # (Auto) 0.6 (0.1-1.2) X10*3/uL Eos # (Auto) 0.0 (0.0-0.4) X10*3/uL Baso # (Auto) 0.0 (0.0-0.2) X10*3/uL Abs Immat Gran (auto) 0.03 (0.00-0.03) X10*3/uL Absolute Neuts (auto) 7.6 (2.0-8.3) x10*3/uL Absolute Nucleated RBC 0.000 (0.0-0.012) X10*3/uL Nucleated RBC % (auto) 0.0 (0.0-0.2) /100WBC PT 11.3 (11.1-13.3) SEC INR 0.9 (0.9-1.1) Sodium 137 (135-145) mmol/L Potassium 4.0 (3.3-5.1) mmol/L Chloride 105 (96-108) mmol/L Carbon Dioxide 25 (22-29) mmol/L Anion Gap 11 L (12-20) BUN 7 L (9-16) mg/dL Creatinine 0.76 (0.5-1.4) mg/dL Estim Creat Clear Calc 76.5 Estimated GFR > 60 Random Glucose 115 (60-115) mg/dL Calcium 9.4 D (8.4-10.2) mg/dL Total Bilirubin 1.0 (0.0-1.0) mg/dL AST 13 (5-31) U/L ALT 11 (0-31) U/L Alkaline Phosphatase 66 (39-117) U/L Total Protein 7.0 (6.5-8.0) g/dL Albumin 4.7 (3.5-5.0) g/dL Beta HCG, Quant 55781 mIU/mL Urine Color Dark Yellow Urine Appearance Clear Urine pH 7.0 (5.0-9.0) Ur Specific [place] >= 1.030 H (1.005-1.025) Urine Protein 30 (1+) H (Neg-Trace) mg/dL Urine Glucose (UA) Negative (Negative) mg/dL Urine Ketones 40 (Negative) mg/dL Urine Blood Negative (Negative) Urine Nitrite Negative (Negative) Ur Leukocyte Esterase Trace H (Negative) Urine RBC 0-2 (0-2) /HPF Urine WBC 0-5 (0-5) /HPF Ur Squamous Epith Cells 6-10 (0-2) /HPF Urine Bacteria Trace (None Seen) Hyaline Casts 0-2 (0-2) /LPF Blood Type B Positive Antibody Screen NEGATIVE Discharge Plan Discharge Clinical Impression: Abdominal pain Patient Disposition: Elopement
[2023-02-01 14:25] LABS: MANUAL DIFF FLAG NO
[2023-02-01 14:27] LABS: Basophils Percent Auto 0.2 % (0-2); Eosinophils Percent Auto 0.4 % (0-4); Hematocrit 41.8 % (37.0-47.0); Hemoglobin 15.1 g/dl (12.0-16.0); Imm Gran Abs Auto 0.03 X10*3/uL (0.00-0.03); Imm Gran Pct Auto 0.3 % (0.0-0.4); Lymphocytes Absolute Auto 1.2 X10*3/uL (1.2-4.9); Lymphocytes Percent Auto 12.8 % (20-40); Mean Corpuscular HGB Conc 36.1 g/dl (31.0-35.0); Mean Corpuscular Hemoglobin 33.3 pg (27.0-33.0); Mean Corpuscular Volume 92.3 fL (80.0-98.0); Mean Platelet Volume 10.1 fL (9.4-12.3); Monocytes Absolute Auto 0.6 X10*3/uL (0.1-1.2); Monocytes Percent Auto 6.2 % (2-11); Neutrophils Absolute Auto 7.6 x10*3/uL (2.0-8.3); Neutrophils Percent Auto 80.1 % (45-73); Platelet Count 282 X10*3/uL (160-400); Red Blood Count 4.53 X10*6/uL (4.20-5.50); Red Cell Distribution Width 11.1 % (11.0-16.0); White Blood Count 9.5 X10*3/uL (4.8-10.8)
[2023-02-01 14:28] LABS: Appearance Urine Clear; Color Urine Dark Yellow; Glucose Urine UA Negative (Negative); Leukocyte Esterase Urine Trace (Negative); Nitrite Urine Negative (Negative); Specific Gravity - Urine >= 1.030 (1.005-1.025); UMIC TRIGGER UACC YES; Urine Blood Negative (Negative); Urine Ketones 40 mg/dL (Negative); Urine Protein 30 (1+) mg/dL (Neg-Trace)
[2023-02-01 14:30] LABS: Bacteria Urine Trace (None Seen); Hyaline Casts Urine 0-2 /LPF (0-2); RBC Urine 0-2 /HPF (0-2); WBC Urine 0-5 /HPF (0-5)
[2023-02-01 14:34] LABS: INTERNATIONAL NORM RATIO 0.9 (0.9-1.1); Prothrombin Time 11.3 SEC (11.1-13.3)
[2023-02-01 14:56] LABS: Alanine Aminotransferase 11 U/L (0-31); Albumin Level 4.7 g/dL (3.5-5.0); Alkaline Phosphatase 66 U/L (39-117); Anion Gap 11 (12-20); Aspartate Amino Transferase 13 U/L (5-31); Blood Urea Nitrogen 7 mg/dL (9-16); Calcium 9.4 mg/dL (8.4-10.2); Carbon Dioxide 25 mmol/L (22-29); Chloride 105 mmol/L (96-108); Creatinine Clr Calc Pharmacy 76.5; Estimated Glomerular Filt Rate > 60; Glucose Random 115 mg/dL (60-115); Sodium 137 mmol/L (135-145)
[2023-02-01 15:14] LABS: HCG Quantitative 17151 mIU/mL
== END 2023-02-01 17:22 | disposition left against medical advice (07) ==
PROVIDERS: Registered Nurse Emergency; Emergency Provider Emergency Medicine
DX: O26.891 Other specified pregnancy related conditions, first trimester (principal); R10.9 Unspecified abdominal pain; O99.331 Smoking (tobacco) complicating pregnancy, first trimester; F17.210 Nicotine dependence, cigarettes, uncomplicated; Z3A.01 Less than 8 weeks gestation of pregnancy
CPT/HCPCS: 36415; 76801; 76817; 80053; 81001; 84702; 85025; 85610; 86850; 86900; 86901; 99282; 99284

== ENCOUNTER 2023-02-07 08:10 | Outpatient (REF) | payer MEDICAID, SELFPAY ==
--- NOTE | ~2023-02-07 | US_ITS ---
EXAMINATION: US OBSTETRICAL ULTRASOUND, LESS THAN OR EQUAL TO 14 WEEKS CLINICAL INFORMATION: Encounter for supervision of normal , unspecified. Follow-up low heart rate. COMPARISON: Multiple prior Limited first trimester ultrasounds dating back to 10/12/2022. LMP: 12/27/2022. Gestational age by maternal dates is 6 weeks and 0 days. Estimated date of delivery by maternal dates is 10/03/2023. Dating obtained on prior limited ultrasound from 02/01/2023: Gestational age: 5 weeks 6 days. Estimated date of delivery 09/28/2023. TECHNIQUE: A limited obstetrical ultrasound was performed FINDINGS: There is a single intrauterine gestational sac with visible yolk sac, embryo/fetus, and cardiac activity. There is no significant subchorionic hemorrhage or hematoma. HR: 124 beats per minute. CRL (crown rump length): 0.45 cm (6 weeks 2 days +/- 4 days). BERNICE (estimated date of delivery): 10/01/2023 +/- 4 days. MATERNAL ADNEXA: The right maternal ovary measures 2.3 x 1.5 x 1.7 cm. No focal mass. The left maternal ovary measures 2.4 x 2 x 2.8 cm. No focal mass. There is no significant maternal adnexal mass. No maternal pelvic ascites. US/US OB <= 14 weeks fetus IMPRESSION: 1. Single intrauterine gestation with ultrasound gestational age of 6 weeks and 2 days +/- 4 days based on today's assessment, with estimated date of delivery of 10/01/2023, which is similar to the originally obtained dates on 02/01/2023 and listed above. 2. heart rate is 124 bpm. 3. No maternal adnexal mass or pelvic ascites.
== END 2023-02-07 08:11 | disposition home or self-care (01) ==
LOC: HO.US 08:10
PROVIDERS: PCP Internal Medicine; Visit Provider Obstetrics & Gynecology
DX: Z34.90 Encounter for supervision of normal pregnancy, unspecified, unspecified trimester (principal)
CPT/HCPCS: 36415; 76801; 84702; 99212

== ENCOUNTER 2023-02-07 11:28 | Outpatient (AMB) | payer MEDICAID, SELFPAY ==
--- NOTE | 2023-02-07 11:41 | A.OFFVIS_ITS ---
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 The patient went to the emergency room 02/01 for pelvic cramping without any spotting. HCG was 17,151. Pelvic ultrasound showed the following: IMPRESSION: 1. Single intrauterine gestation with ul trasound gestational age of 5 weeks 6 days +/- 4 days. 2. Estimated date of delivery is 024 +/- 4 days. 3. No maternal adnexal mass or pelvic as cites. The patient underwent diagnostic laparoscopy/ evacuation of 250 cc of hemo peritoneum on 10/13/2021 after she presented emergency room where ultrasound showed right ectopic and increase in the amount of fluid in the cul-de-sac and right adnexa, the patient had significant abdominal exam showing tenderness rebound and guarding. Intraoperatively there was no evidence of tubal rupture, and immediate postop hCG dropped from 219 in the emergency room down to 116 in the recovery. 48 hours afterwards hCG went up 211, the patient was counseled about the options of treatment and decided to proceed with methotrexate which was given on 10/15. The patient did well afterward hCG dropped to 0 on 11/01/22. The patient was counseled about options of control but she declined and was counseled against getting prior to 4 months post methotrexate injection. The patient is doing well today with no complaints, no pelvic cramping and or bleeding. Did not start vitamin yet. Ultrasound done today, no official report available but unofficial reading showed 6 weeks and 2 days of gestation IUP with heart rate of 124 and no subchorionic bleed [facility] Medical History Asthma Family History Mother Pancreatic cancer Father Lung cancer Paternal Aunt Breast cancer Social History Household Members: Significant Other Housing: House Alcohol intake: former Patient Tobacco Use Status: Current everyday Tobacco user Cigarettes Per Day: 1 Current occupational status: unemployed Sexual orientation: Straight/Heterosexual Gender identity: Female Female Reproductive History Menstrual Date of last menstrual period: 12/27/22 Review of Systems Const All systems reviewed & are unremarkable except as noted in HPI and below Reports as per HPI and Reports no additional complaints GI Reports no additional complaints Reports no additional complaints Physical Exam Vital Signs: BMI result Body Mass Index 21.8 Assessment & Plan Assessment & Plan (1) Early stage of : Code(s): Z34.90 - Encounter for supervision of normal , unspecified, unspecified trimester Plan: Discussed with the patient the results of ultrasound showing IUP .? SAB warnings given the patient, she is to call or go to emergency room in case of cramping and or bleeding.? Folic acid 400 mcg p.o. q.d. recommended.? Vitamin B6 25 mg p.o. t.i.d. p.r.n. nausea or vomiting given to the patient.? Discussed the patient the following regarding the timing of her post methotrexate on 10/15: The product labeling approved by the U.S. Food and Drug Administration rec ommends that women avoid during treatment and for at least one ovulatory cycle after methotrexate therapy? Methotrexate is cleared from the serum before the 4?12 weeks necessary for the resolution of the ectopic gestation and ovulation in the next cycle. However, there are reports of methotrexate detectable in liver cells 116 days past exposure. Limited evidence suggests that the frequency of congenital anomalies or early loss is not elevated in women who have become shortly after methotrexate exposure?. However, perhaps based on the timing of methotrexate?s clearance from the body, some experts continue to recommend that women delay for at least 3 months after the last dose of methotrexate. Patient would like to think about her options including keeping her versus termination. Instructions given the patient [facility] is desired. Recommended follow-up in 3 weeks for initial OB visit. Medications: New folic acid 400 mcg PO DAILY 90 tabs 0RF pyridoxine (vitamin B6) (Vitamin B-6) may take every 6 - 8 hours for nausea 25 mg PO tid 30 days PRN 90 tabs 3RF nausea Coding Level of Care Code Est Pt Level 3 (40912) Diagnoses Early stage of Z34.90
[2023-02-07 11:45] VITALS: BP 110/66; BMI 21.8
== END 2023-02-07 12:10 | disposition home or self-care (01) ==
PROVIDERS: Visit Provider Obstetrics & Gynecology
DX: Z34.90 Encounter for supervision of normal pregnancy, unspecified, unspecified trimester (principal)
CPT/HCPCS: 99213

== ENCOUNTER 2023-08-11 01:48 | Emergency (ER) | payer MEDICAID, SELFPAY ==
[2023-08-11 01:51] VITALS: BP 131/91; PULSE 84; RESP 16; TEMP 36.7; O2SAT 97; BMI 21.2
--- NOTE | 2023-08-11 02:03 | ECG_ITS ---
Test Reason : CHEST TIGHTNESS Blood Pressure : / mmHG Vent. Rate : 068 BPM Atrial Rate : 068 BPM P-R Int : 132 ms QRS Dur : 076 ms QT Int : 416 ms P-R-T Axes : 040 065 041 degrees QTc Int : 442 ms Normal sinus rhythm with sinus arrhythmia Normal ECG No previous ECGs available Referred By: Generic ED Physician Electronically Signed By:TORI SANDRA
[2023-08-11 02:14] LABS: MANUAL DIFF FLAG NO
[2023-08-11 02:15] LABS: Basophils Percent Auto 0.3 % (0-2); Eosinophils Absolute Auto 0.1 X10*3/uL (0.0-0.4); Eosinophils Percent Auto 0.8 % (0-4); Hematocrit 46.4 % (37.0-47.0); Hemoglobin 16.8 g/dl (12.0-16.0); Imm Gran Abs Auto 0.02 X10*3/uL (0.00-0.03); Imm Gran Pct Auto 0.2 % (0.0-0.4); Lymphocytes Absolute Auto 2.3 X10*3/uL (1.2-4.9); Lymphocytes Percent Auto 26.4 % (20-40); Mean Corpuscular HGB Conc 36.2 g/dl (31.0-35.0); Mean Corpuscular Hemoglobin 33.4 pg (27.0-33.0); Mean Corpuscular Volume 92.2 fL (80.0-98.0); Mean Platelet Volume 10.1 fL (9.4-12.3); Monocytes Absolute Auto 0.7 X10*3/uL (0.1-1.2); Monocytes Percent Auto 8.6 % (2-11); Neutrophils Absolute Auto 5.5 x10*3/uL (2.0-8.3); Neutrophils Percent Auto 63.7 % (45-73); Platelet Count 315 X10*3/uL (160-400); Red Blood Count 5.03 X10*6/uL (4.20-5.50); White Blood Count 8.6 X10*3/uL (4.8-10.8)
[2023-08-11 02:30] LABS: Alanine Aminotransferase 16 U/L (0-31); Albumin Level 4.6 g/dL (3.5-5.0); Alkaline Phosphatase 83 U/L (39-117); Anion Gap 16 (12-20); Aspartate Amino Transferase 21 U/L (5-31); Bilirubin Total 1.4 mg/dL (0.0-1.0); Blood Urea Nitrogen 7 mg/dL (9-16); Calcium 9.3 mg/dL (8.4-10.2); Carbon Dioxide 23 mmol/L (22-29); Chloride 106 mmol/L (96-108); Creatinine Clr Calc Pharmacy 73.5; Estimated Glomerular Filt Rate > 60; Glucose Random 111 mg/dL (60-115); Potassium 3.5 mmol/L (3.3-5.1); Sodium 141 mmol/L (135-145)
[2023-08-11 02:38] LABS: Troponin-I High Sensitivity < 2.7 ng/L (<3.5-17.0)
--- NOTE | 2023-08-11 03:36 | ED_ITS ---
HPI - General Adult General Chief complaint: Allergic Reaction Stated complaint: anaphylactic shock? Time Seen by Provider: 08/11/23 03:23 History of Present Illness HPI narrative: Patient is a 27-year-old woman who says that she had some [employer]erds candies this evening at around 19:30. About half an hour later she felt that she was breaking out in a rash similar to previous allergic reactions. She took 25 mg of Benadryl. She fell asleep. Several hours later she woke up and had a much more severe rash and a sense of tingling in her tongue. Her boyfriend then drove her to the hospital. The patient says that she has had episodes of what she considered anaphylaxis in the past. She has had multiple previous emergency room visits for similar reactions in the past and she has been prescribed EpiPen. However she says that when she has had formal allergy testing no allergen was identified. Related Data Previous Rx's Medication Instructions Recorded folic acid 400 mcg tablet 400 mcg PO DAILY #90 tabs 02/07/23 pyridoxine (vitamin B6) 25 mg 25 mg PO tid PRN nausea 30 days 02/07/23 tablet (Vitamin B-6) #90 tabs epinephrine 0.3 mg/0.3 mL 0.3 mg (0.3 mL) IM Q4H PRN 08/11/23 injection, auto-injector (EpiPen) anaphylaxis #2 ea Allergies Allergy/AdvReac Type Severity Reaction Status Date / Time [place] And Derivatives Allergy Unknown HIVES Verified 08/11/23 01:50 [CITRUS] diphenhydramine Allergy Unknown THROAT Verified 08/11/23 01:50 [From BENADRYL] CLOSED UP orange [ORANGE] Allergy Unknown HIVES Verified 08/11/23 01:50 NERDS CANDY Allergy Unknown FACIAL Uncoded 02/07/23 11:45 SWELLING, HIVES Review of Systems 2 Review of Systems: Yes all other systems are reviewed and are negative [facility] Past Medical History Medical History Asthma Family History Family History Mother Pancreatic cancer Father Lung cancer Paternal Aunt Breast cancer Social History Social History Household Members: Significant Other Housing: House Alcohol intake: never Patient Tobacco Use Status: Current everyday Tobacco user Cigarettes Per Day: 1 Smoked in Last 30 Days: No Use of substances other than those prescribed or required for medical reasons: No Any prior treatment program specific to substance use: No Advance Directives: No Advance Directives Information Provided: No Current occupational status: unemployed Sexual orientation: Straight/Heterosexual Gender identity: Female Physical Exam ED Vital Signs: Vital Signs - 24 hr 08/11/23 01:51 08/11/23 04:14 08/11/23 04:18 Temperature 98.0 F Pulse Rate 84 50 47 L Respiratory Rate 16 12 Blood Pressure 131/91 H 121/81 121/81 Pulse Oximetry 97 98 Oxygen Delivery Method Room Air Room Air 08/11/23 05:15 Temperature 97.6 F Pulse Rate 49 L Respiratory Rate 12 Blood Pressure 116/72 Pulse Oximetry 99 Oxygen Delivery Method Room Air BMI result Body Mass Index 21.2 Const Other: The patient is awake and alert. She has diffuse hives. She has some eyelid swelling. She does not appear in respiratory distress. HENMT Other: Some hives on the face. No intraoral lesions or swelling. Eyes Other: Mild bilateral eyelid edema Neck Other: No stridor Resp Other: No wheezes Effort & Inspection: normal respiratory effort Auscultation: clear to auscultation bilaterally GI Other: Abdomen is soft and nontender Skin Other: Hives on much of the skin Neuro Other: Awake, alert, oriented, appropriate, grossly neurologically intact Extrem Other: No peripheral edema Medications Administered Discontinued Medications Generic Name Dose Route Start Last Admin Trade Name Freq PRN Reason Stop Dose Admin Epinephrine 0.3 mg 08/11/23 03:35 08/11/23 04:18 Epinephrine 1 Mg/Ml Vial IM 08/11/23 03:36 0.3 mg ONCE ONE Administration Famotidine 40 mg 08/11/23 03:35 08/11/23 04:18 Famotidine 20 Mg Tablet PO 08/11/23 03:36 40 mg ONCE ONE Administration Loratadine 10 mg 08/11/23 03:34 08/11/23 04:18 Loratadine 10 Mg Tablet PO 08/11/23 03:35 10 mg ONCE ONE Administration Medical Decision Making Medical Decision Making MDM Narrative: The patient presents with full body hives after eating nerds candy. She was treated with an EpiPen, Benadryl, famotidine, and loratadine. She was observed. She improved. She will be discharged with a prescription for an EpiPen. I think she will need to be re-evaluated at the Allergy office. Lab Data 08/11/23 02:08 08/11/23 02:08 Labs: Lab Results 08/11/23 08/11/23 Range/Units 02:08 05:23 WBC 8.6 (4.8-10.8) X10*3/uL RBC 5.03 (4.20-5.50) X10*6/uL Hgb 16.8 H (12.0-16.0) g/dl Hct 46.4 (37.0-47.0) % MCV 92.2 (80.0-98.0) fL MCH 33.4 H (27.0-33.0) pg MCHC 36.2 H (31.0-35.0) g/dl RDW 12.0 (11.0-16.0) % Plt Count 315 (160-400) X10*3/uL MPV 10.1 (9.4-12.3) fL Immature Gran % (Auto) 0.2 (0.0-0.4) % Neut % (Auto) 63.7 (45-73) % Lymph % (Auto) 26.4 (20-40) % [place] % (Auto) 8.6 (2-11) % Eos % (Auto) 0.8 (0-4) % Baso % (Auto) 0.3 (0-2) % Lymph # (Auto) 2.3 (1.2-4.9) X10*3/uL [place] # (Auto) 0.7 (0.1-1.2) X10*3/uL Eos # (Auto) 0.1 (0.0-0.4) X10*3/uL Baso # (Auto) 0.0 (0.0-0.2) X10*3/uL Abs Immat Gran (auto) 0.02 (0.00-0.03) X10*3/uL Absolute Neuts (auto) 5.5 (2.0-8.3) x10*3/uL Absolute Nucleated RBC 0.000 (0.0-0.012) X10*3/uL Nucleated RBC % (auto) 0.0 (0.0-0.2) /100WBC Sodium 141 (135-145) mmol/L Potassium 3.5 (3.3-5.1) mmol/L Chloride 106 (96-108) mmol/L Carbon Dioxide 23 (22-29) mmol/L Anion Gap 16 (12-20) BUN 7 L (9-16) mg/dL Creatinine 0.79 (0.5-1.4) mg/dL Estim Creat Clear Calc 73.5 Estimated GFR > 60 Random Glucose 111 (60-115) mg/dL Calcium 9.3 (8.4-10.2) mg/dL Total Bilirubin 1.4 H (0.0-1.0) mg/dL AST 21 (5-31) U/L ALT 16 (0-31) U/L Alkaline Phosphatase 83 (39-117) U/L Troponin I High Sens < 2.7 (<3.5-17.0) ng/L Total Protein 7.0 (6.5-8.0) g/dL Albumin 4.6 (3.5-5.0) g/dL Urine Test NEGATIVE (NEGATIVE) Discharge Plan Discharge Clinical Impression: Anaphylaxis Patient Disposition: Home, Self-Care Instructions: General Allergic Reaction (ED) Additional Instructions: Please plan on seeing your regular doctor for another referral to an reading recovery teacher. You are clearly allergic to something and I think it would be good for you to see an reading recovery teacher again to discuss your condition. I have sent a prescription for a new EpiPen to your pharmacy since your old EpiPen a few years ago. If you have mild ongoing symptoms you may use Benadryl. If you have any severe recurrence of symptoms please return to the emergency room. If very severe use your EpiPen and return to the emergency room. Prescriptions: New epinephrine [EpiPen] 0.3 mg/0.3 mL auto-injector 0.3 mg IM Q4H PRN (Reason: anaphylaxis) Qty: 2 0RF No Action folic acid 400 mcg tablet 400 mcg PO DAILY Qty: 90 0RF pyridoxine (vitamin B6) [Vitamin B-6] 25 mg tablet 25 mg PO tid PRN (Reason: nausea) 30 Days Qty: 90 3RF Rx Instructions: may take every 6 - 8 hours for nausea Referrals: Flaquita Thompson MD [Primary Care Provider] - (Anaphylaxis) Stand Alone Forms: Work/School Release Interventions: ED Discharge Assessment Last Done: 08/11/23 05:15 Discharge Date/Time: 08/11/23 03:30
[2023-08-11 04:14] VITALS: BP 121/81; PULSE 50; RESP 12; O2SAT 98
[2023-08-11 04:18] VITALS: BP 121/81; PULSE 47
[2023-08-11] MEDS: Famotidine 20 MG TABLET 40 MG PO (04:18)
[2023-08-11] MEDS: EPINEPHrine 1 MG/ML VIAL 0.3 MG IM (04:18)
[2023-08-11] MEDS: Loratadine 10 MG TABLET PO (04:18)
[2023-08-11 05:15] VITALS: BP 116/72; PULSE 49; RESP 12; TEMP 36.4; O2SAT 99
[2023-08-11 05:33] LABS: UPreg QC Valid YES; Urine Pregnancy NEGATIVE (NEGATIVE)
== END 2023-08-11 03:30 | disposition home or self-care (01) ==
PROVIDERS: Emergency Provider Emergency Medicine; PCP Internal Medicine
DX: T78.09XA Anaphylactic reaction due to other food products, initial encounter (principal); J45.909 Unspecified asthma, uncomplicated
CPT/HCPCS: 36415; 80053; 81025; 84484; 85025; 93005; 96372; 99284; J0171

== ENCOUNTER → 2023-08-11 02:03 | Outpatient (BNV) | payer MEDICAID, SELFPAY | PROVIDERS: Emergency Provider Emergency Medicine; PCP Internal Medicine; Visit Provider Internal Medicine | DX: R07.89 Other chest pain (principal) | CPT/HCPCS: 93010 ==

== ENCOUNTER 2023-08-25 14:53 | Emergency (ER) | payer MEDICAID, SELFPAY ==
--- NOTE | ~2023-08-25 | XR_ITS ---
EXAMINATION: XR HIP, RIGHT CLINICAL INFORMATION: Right hip pain. COMPARISON: CT abdomen/pelvis 08/24/2017. TECHNIQUE: Two views of the right hip. FINDINGS: No fracture. Alignment is anatomic. Hip joint space is maintained. Soft tissues are unremarkable. XR/XR hip RT w PEL1V IMPRESSION: Normal right hip.
--- NOTE | ~2023-08-25 | XR_ITS ---
EXAMINATION: XR LUMBOSACRAL SPINE CLINICAL INFORMATION: Back pain. COMPARISON: CT abdomen/pelvis 08/24/2017. TECHNIQUE: Three views of the lumbosacral spine. FINDINGS: No fractures or subluxation. Intervertebral disc heights are maintained. Normal appearance of the posterior elements. Symmetric SI joints. No significant paraspinal soft tissue abnormality. XR/XR lumbar spine 2-3V IMPRESSION: No significant radiographic abnormality.
[2023-08-25 15:46] VITALS: BP 138/91; PULSE 97; RESP 20; TEMP 37; O2SAT 97; BMI 20.2
[2023-08-25 16:07] LABS: Appearance Urine Clear; Color Urine Yellow; Glucose Urine UA Negative (Negative); Leukocyte Esterase Urine Negative (Negative); Nitrite Urine Negative (Negative); PH 7.5 (5.0-9.0); Specific Gravity - Urine <= 1.005 (1.005-1.025); Urine Blood Negative (Negative); Urine Ketones Negative (Negative); Urine Protein Negative (Neg-Trace)
--- NOTE | 2023-08-25 16:33 | ED_ITS ---
HPI - General Adult General Chief complaint: Extremity Problem Stated complaint: R HIP PAIN Time Seen by Provider: 08/25/23 18:33 Source: patient Mode of arrival: ambulatory Limitations: no limitations History of Present Illness HPI narrative: 27-year-old female with history of bilateral flat foot presents to ED for low back pain radiating down right buttock and right hip causing pain. Patient states having this for the past 2 days. Patient states hip low back pain is worse on movement. Patient denies any chest pain, shortness of breath, leg swelling, calf pain, thigh pain, recent long travel, recent surgery r, any recent running exercising. Patient denies any urinary/bowel incontinence. Patient denies any IV drug use. Related Data Previous Rx's ?Medication ?Instructions ?Recorded folic acid 400 mcg tablet 400 mcg PO DAILY #90 tabs 02/07/23 pyridoxine (vitamin B6) 25 mg 25 mg PO tid PRN nausea 30 days 02/07/23 tablet (Vitamin B-6) #90 tabs epinephrine 0.3 mg/0.3 mL 0.3 mg (0.3 mL) IM Q4H PRN 08/11/23 injection, auto-injector (EpiPen) anaphylaxis #2 ea cyclobenzaprine 10 mg tablet 10 mg PO TID PRN muscle spasm 7 08/25/23 days #21 tabs naproxen 500 mg tablet 500 mg PO BID PRN pain 7 days #14 08/25/23 tabs prednisone 20 mg tablet 40 mg (2 x 20 mg) PO DAILY 5 days 08/25/23 #10 tabs Allergies Allergy/AdvReac Type Severity Reaction Status Date / Time [place] And Derivatives Allergy Unknown HIVES Verified 08/25/23 15:48 [CITRUS] diphenhydramine Allergy Unknown THROAT Verified 08/25/23 15:48 [From BENADRYL] CLOSED UP orange [ORANGE] Allergy Unknown HIVES Verified 08/25/23 15:48 NERDS CANDY Allergy Unknown FACIAL Uncoded 02/07/23 11:45 SWELLING, HIVES Review of Systems 2 Review of Systems: Back right hip pain. Yes all other systems are reviewed and are negative [facility] Past Medical History Medical History Asthma Family History Family History Mother Pancreatic cancer Father Lung cancer Paternal Aunt Breast cancer Social History Social History Household Members: Significant Other Housing: House Alcohol intake: never Patient Tobacco Use Status: Current everyday Tobacco user Cigarettes Per Day: 1 Advance Directives: No Advance Directives Information Provided: No Current occupational status: unemployed Sexual orientation: Straight/Heterosexual Gender identity: Female Physical Exam ED Vital Signs: Vital Signs - 24 hr 08/25/23 15:46 08/25/23 19:37 08/25/23 19:41 Temperature 98.6 F 98.7 F 98.7 F Pulse Rate 97 55 55 Respiratory Rate 20 16 16 Blood Pressure 138/91 H 129/73 129/73 Pulse Oximetry 97 99 99 Oxygen Delivery Method Room Air Room Air BMI result Body Mass Index 20.2 Const General: cooperative, healthy appearing, comfortable, no acute distress, well developed, alert, awake and Physically active Orientation/consciousness: oriented to person, oriented to place, oriented to time and patient oriented x3 HENMT Head: Yes normal to inspection, Yes No palpable skull fracture present, Yes normocephalic, Yes atraumatic and No abrasion Eyes General: appearance normal, both eyes and all related structures Neck Neck: Yes normal visual inspection, Yes full ROM, Yes no lymphadenopathy, Yes no meningeal signs, Yes trachea midline, Yes supple, No anterior neck swelling and No tender Chest Chest palpation & inspection: normal inspection of the chest and normal palpation of entire chest wall Resp Effort & Inspection: normal respiratory effort and able to speak in complete sentences Auscultation: clear to auscultation bilaterally Cardio Jugular venous distension: no JVD Heart sounds: S1 normal heart sound present and S2 normal heart sound present GI Inspection: Yes normal to inspection Palpation (GI): Soft to palpation, not firm, nontender, no guarding and not rigid General: No CVA tenderness and Yes no CVA tenderness Back/Spine/Pelvis Back: no CVA tenderness, No CVA tenderness and back tenderness (Lumbar) Back/spine/pelvis image: 2 1. Positive for tenderness on palpation. Negative for crepitus, ecchymosis, deformity, erythema, or rash. Pain on range of motion Skin General skin exam: no rashes or lesions noted, elasticity normal and turgor normal Neuro General: oriented to person, oriented to place, oriented to time, patient oriented x3, gait normal, tone normal, moves all extremities, Normal light touch and pain sensation, no meningeal signs, no focal motor deficits, CN's II-XI intact bilaterally and normal sensation to monofilament Extrem General: Yes normal to inspection, Yes full ROM and Yes capillary refill normal Upper/lower leg/hip images: 2 1. Positive for tenderness on palpation. Negative ecchymosis, crepitus, deformity, erythema, mass, fluctuance, or palpable cord. Rest of extremity normal. Motor/neuro/vascular exam intact Psych Appearance: grossly normal, well kempt and not disheveled Course Course Course Narrative: RME: 27 yold female presents to the ED for right hip pain and low back pain for the past two days. patient denies any trauma. Sent for xrays. Medications Administered Discontinued Medications Generic Name Dose Route Start Last Admin Trade Name Freq PRN Reason Stop Dose Admin Ketorolac Tromethamine 30 mg 08/25/23 18:55 08/25/23 19:15 Ketorolac Tromethamine 30 Mg/Ml Vial IM 08/25/23 18:56 30 mg ONCE ONE Administration Prednisone 60 mg 08/25/23 18:55 08/25/23 19:14 Prednisone 20 Mg Tablet PO 08/25/23 18:56 60 mg ONCE ONE Administration Medical Decision Making Medical Decision Making [facility] Narrative: 27-year-old female presents to ED for low back right hip pain worse on movement without any trauma. Physical exam negative for signs of cellulitis, DVT, or fracture. Not suspecting epidural spine abscess or cauda equinus. Patient given pain medication and steroids. Patient informed to follow-up with primary care provider. Patient explained worrisome signs informed to return to the ED immediately. Differential Diagnosis Differential Diagnoses: The differential diagnosis associated with the presentation includes (Lumbar hip radiculopathy. Lumbar spine hip fracture. UTI. Sciatica) Lab Data [facility] Lab Attestation statement: I reviewed the patient's lab results. Labs: Lab Results 08/25/23 Range/Units 15:58 Urine Color Yellow Urine Appearance Clear Urine pH 7.5 (5.0-9.0) Ur Specific [place] <= 1.005 (1.005-1.025) Urine Protein Negative (Neg-Trace) mg/dL Urine Glucose (UA) Negative (Negative) mg/dL Urine Ketones Negative (Negative) mg/dL Urine Blood Negative (Negative) Urine Nitrite Negative (Negative) Ur Leukocyte Esterase Negative (Negative) Urine Test NEGATIVE (NEGATIVE) Independent Interpretation I performed an independent interpretation of an: Plain X-Ray Radiology Impression Discussion of test interpretation with radiology: I have reviewed the radiologist's reading. External Record Review External record reviewed: Other (Prior visits) Prescription Management I considered prescription management with: Pain Medication Discharge Plan Discharge Clinical Impression: Back pain, Hip pain, Sciatica Patient Disposition: Home, Self-Care Instructions: Sciatica (ED), Back Pain (ED), Hip Pain (ED) Additional Instructions: Return to the ED immediately for any worsening back pain, urinary/bowel incontinence, fever, chills, paralysis of lower extremities, numbness/tingling in genital rectal area, fever, chills, abdominal pain, flank pain, nausea, vomiting, inability to walk, bluish black discoloration, redness, or any other concerning symptoms. Prescriptions: New prednisone 20 mg tablet 40 mg PO DAILY 5 Days Qty: 10 0RF naproxen 500 mg tablet 500 mg PO BID PRN (Reason: pain) 7 Days Qty: 14 0RF cyclobenzaprine 10 mg tablet 10 mg PO TID PRN (Reason: muscle spasm) 7 Days Qty: 21 0RF Rx Instructions: Side effects his drowsiness. Do not take at work or while driving No Action epinephrine [EpiPen] 0.3 mg/0.3 mL auto-injector 0.3 mg IM Q4H PRN (Reason: anaphylaxis) Qty: 2 0RF folic acid 400 mcg tablet 400 mcg PO DAILY Qty: 90 0RF pyridoxine (vitamin B6) [Vitamin B-6] 25 mg tablet 25 mg PO tid PRN (Reason: nausea) 30 Days Qty: 90 3RF Rx Instructions: may take every 6 - 8 hours for nausea Stand Alone Forms: Work/School Release Interventions: ED Discharge Assessment Last Done: 08/25/23 19:41 Discharge Date/Time: 08/25/23 19:41 Print Language: [place]
[2023-08-25] MEDS: predniSONE 20 MG TABLET 60 MG PO (19:14)
[2023-08-25] MEDS: Ketorolac Tromethamine 30 MG/ML VIAL IM (19:15)
[2023-08-25 19:37] VITALS: BP 129/73; PULSE 55; RESP 16; TEMP 37.1; O2SAT 99
[2023-08-25 19:38] LABS: UPreg QC Valid YES; Urine Pregnancy NEGATIVE (NEGATIVE)
[2023-08-25 19:41] VITALS: BP 129/73; PULSE 55; RESP 16; TEMP 37.1; O2SAT 99
== END 2023-08-25 19:41 | disposition home or self-care (01) ==
PROVIDERS: Physician Assistant; Emergency Provider Emergency Medicine
DX: M54.41 Lumbago with sciatica, right side (principal); M25.551 Pain in right hip; Z79.899 Other long term (current) drug therapy
CPT/HCPCS: 72100; 73502; 81003; 81025; 96372; 99283; 99284; J1885

== ENCOUNTER 2023-11-27 13:16 | Outpatient (REF) | payer MEDICAID, SELFPAY ==
[2023-11-28 04:47] LABS: CT PCR NOT DETECTED (Not Detect.); NG PCR NOT DETECTED (Not Detect.)
[2023-11-28 11:56] LABS: Bacterial Vaginosis PCR POSITIVE (Negative); Candida Group PCR NOT DETECTED (Not Detect); Candida glab krusei PCR NOT DETECTED (Not Detect); Trichomonas vaginalis PCR NOT DETECTED (Not Detect)
== END 2023-11-27 13:17 | disposition home or self-care (01) ==
LOC: HO.HHCLNP 13:16
PROVIDERS: Visit Provider Family Medicine
DX: N93.9 Abnormal uterine and vaginal bleeding, unspecified (principal); R30.0 Dysuria
CPT/HCPCS: 0352U; 87086; 87491; 87591

== ENCOUNTER 2023-11-28 13:29 | Emergency (ER) | payer MEDICAID, SELFPAY ==
--- NOTE | ~2023-11-28 | CT_ITS ---
EXAMINATION: CT ABDOMEN AND PELVIS WITH CONTRAST CLINICAL INFORMATION: Abdominal pain COMPARISON: CT scan abdomen pelvis August 24, 2017. Ultrasound of the pelvis November 28, 2023 TECHNIQUE: Multidetector volumetric images were obtained from the superior aspect of the liver through the pubic symphysis following administration 85 mL of Omnipaque 350 intravenous contrast. Sagittal and coronal reformatted images were obtained on the technologist's workstation. Oral contrast: No This CT examination was performed using dose optimization techniques as appropriate, variously including the following: *Automated exposure control *Adjustment of mA and/or kV according to patient size (this includes techniques or standardized protocols for targeted exams where dose is matched to indication/reason for exam; i.e. extremities or head) *Use of iterative reconstruction technique DLP: 289 mGy-cm FINDINGS: LUNG BASES: The visualized lung bases are unremarkable. LIVER, GALLBLADDER, AND BILIARY TREE: The liver is normal in size, shape, and attenuation. No focal hepatic lesion or biliary ductal dilatation is present. The gallbladder is unremarkable with no evidence of radiopaque gallstones, gallbladder wall thickening, or obvious pericholecystic inflammatory changes. PANCREAS: Unremarkable. SPLEEN: Unremarkable. ADRENAL GLANDS: Unremarkable. KIDNEYS AND URETERS: The kidneys are normal in size, shape, and attenuation. No hydronephrosis, hydroureter, or calculi seen. No perinephric stranding. There is a 1 cm cyst in the cortex upper pole left kidney. 5 mm cyst lower pole right kidney. No follow-up imaging is recommended for simple renal cyst.. BLADDER: Unremarkable. GASTROINTESTINAL TRACT: The small and large bowel are unremarkable. The appendix is unremarkable. ABDOMINAL WALL: No significant hernia is appreciated. LYMPH NODES: Normal. VASCULAR: Unremarkable. PELVIC VISCERA: Uterus is anteverted. Crenulated follicle consistent with corpus luteum cyst left ovary. Fluid attenuating cyst measuring 5 cm in the right ovary. No follow-up imaging recommended. Small volume of fluid in the cul-de-sac. OSSEOUS STRUCTURES: Unremarkable. CT/CT abdomen pelvis w IV con IMPRESSION: No acute abnormality CT scan abdomen pelvis. Fleischner guidelines were followed.
--- NOTE | ~2023-11-28 | US_ITS ---
US/US pelvic and transvaginal IMPRESSION: 1. Anechoic cyst in right ovary measuring 4.9 cm. 2. Multiple follicles/cysts in left ovary. Largest measuring 2.6 cm. EXAMINATION: ULTRASOUND PELVIC, COMPLETE CLINICAL INFORMATION: Lower abdominal pain. COMPARISON: CT scan abdomen pelvis November 28, 2023. Ultrasound of pelvis, obstetric, February 07, 2023 TECHNIQUE: Transvaginal: Used to better visualize pelvic structures Transabdominal: Not adequate for visualization Spectral Doppler and color Doppler exam was utilized. LMP: 10/18/2023 FINDINGS: UTERUS: Unremarkable. Uterus is anteverted. Endometrial thickness 0.8 cm. Uterus measures 7.2 x 3.8 x 4.1 cm ADNEXA: Ovarian vascularity:Doppler demonstrates both arterial and venous vascular flow in the right and left ovary. No evidence of ovarian torsion. Right Ovary: Anechoic cyst in right ovary measuring 4.9 x 2.9 x 4 cm.. 5.4 x 3.1 x 4.7 cm. Volume 41.2 mL. Left Ovary: Multiple follicles/cysts. Largest measuring 2.6 cm. Left ovary measures 4.1 x 2.2 x 3.4 cm. Volume 16.1 mL Cul-de-sac: No Fluid
--- NOTE | ~2023-11-28 | US_ITS ---
EXAMINATION: ULTRASOUND PELVIC, COMPLETE CLINICAL INFORMATION: Lower abdominal pain. COMPARISON: CT scan abdomen pelvis November 28, 2023. Ultrasound of pelvis, obstetric, February 07, 2023 TECHNIQUE: Transvaginal: Used to better visualize pelvic structures Transabdominal: Not adequate for visualization Spectral Doppler and color Doppler exam was utilized. LMP: 10/18/2023 FINDINGS: UTERUS: Unremarkable. Uterus is anteverted. Endometrial thickness 0.8 cm. Uterus measures 7.2 x 3.8 x 4.1 cm ADNEXA: Ovarian vascularity:Doppler demonstrates both arterial and venous vascular flow in the right and left ovary. No evidence of ovarian torsion. Right Ovary: Anechoic cyst in right ovary measuring 4.9 x 2.9 x 4 cm.. 5.4 x 3.1 x 4.7 cm. Volume 41.2 mL. Left Ovary: Multiple follicles/cysts. Largest measuring 2.6 cm. Left ovary measures 4.1 x 2.2 x 3.4 cm. Volume 16.1 mL Cul-de-sac: No Fluid US/US pelvic ovarian doppler IMPRESSION: 1. Anechoic cyst in right ovary measuring 4.9 cm. 2. Multiple follicles/cysts in left ovary. Largest measuring 2.6 cm.
[2023-11-28 14:10] VITALS: BP 153/95; PULSE 59; RESP 17; TEMP 36.5; O2SAT 100; BMI 21.0
--- NOTE | 2023-11-28 14:11 | ED.ABDPAIN ---
HPI - Abdominal Pain General Chief Complaint: Abdominal Pain Stated Complaint: abd pain spotting hx atop preg Time Seen by Provider: 11/28/23 17:19 Source: patient, RN notes reviewed and old records reviewed Mode of arrival: ambulatory Limitations: no limitations History of Present Illness ED Provider: Toribio HPI narrative: 28-year-old female presents for evaluation of lower abdominal pain that radiates to her back. Her symptoms have been present for about 1 month. She states that she has had vaginal spotting with dark brown color She denies any fevers, chills nausea, vomiting. Denies any urinary complaints She denies any new sexual partners or concerns for sexually transmitted infections. She states her symptoms are similar to when she had an ectopic about 1 year ago She is unsure if she was . Her last normal menstrual cycle was the end of September She denies starting or stopping control in the last 3 months Related Data Previous Rx's ?Medication ?Instructions ?Recorded folic acid 400 mcg tablet 400 mcg PO DAILY #90 tabs 02/07/23 pyridoxine (vitamin B6) 25 mg 25 mg PO tid PRN nausea 30 days 02/07/23 tablet (Vitamin B-6) #90 tabs epinephrine 0.3 mg/0.3 mL 0.3 mg (0.3 mL) IM Q4H PRN 08/11/23 injection, auto-injector (EpiPen) anaphylaxis #2 ea cyclobenzaprine 10 mg tablet 10 mg PO TID PRN muscle spasm 7 08/25/23 days #21 tabs naproxen 500 mg tablet 500 mg PO BID PRN pain 7 days #14 08/25/23 tabs prednisone 20 mg tablet 40 mg (2 x 20 mg) PO DAILY 5 days 08/25/23 #10 tabs Allergies Allergy/AdvReac Type Severity Reaction Status Date / Time [place] And Derivatives Allergy Unknown HIVES Verified 11/28/23 14:11 [CITRUS] diphenhydramine Allergy Unknown THROAT Verified 11/28/23 14:11 [From BENADRYL] CLOSED UP orange [ORANGE] Allergy Unknown HIVES Verified 11/28/23 14:11 NERDS CANDY Allergy Unknown FACIAL Uncoded 11/28/23 14:11 SWELLING, HIVES Review of Systems Constitutional: Denies body ache(s), Denies chills and Denies fever(s) Eyes: Denies blurry vision Denies sore throat Cardiovascular: Denies chest pain and Denies dyspnea Respiratory: Denies cough and Denies dyspnea Gastrointestinal: Reports abdominal pain, Denies nausea and Denies vomiting Genitourinary: Reports abnormal vaginal bleeding, Denies dysuria, Reports pelvic pain and Reports vaginal discharge Musculoskeletal: Denies back pain Skin/Breast: Denies rash Psychiatric: Denies panic attacks [facility] Past Medical History Medical History Asthma Family History Family History Mother Pancreatic cancer Father Lung cancer Paternal Aunt Breast cancer Social History Social History Household Members: Significant Other Housing: House Alcohol intake: never Patient Tobacco Use Status: Current everyday Tobacco user Cigarettes Per Day: 1 Advance Directives: No Advance Directives Information Provided: No Do you have a plan to hurt others: No Plan Current occupational status: unemployed Sexual orientation: Straight/Heterosexual Gender identity: Female Physical Exam ED Vital Signs: Vital Signs - 24 hr 11/28/23 14:10 11/28/23 20:12 Temperature 97.7 F 98 F Pulse Rate 59 59 Respiratory Rate 17 18 Blood Pressure 153/95 H 141/83 H Pulse Oximetry 100 99 Oxygen Delivery Method Room Air Room Air BMI result Body Mass Index 21.0 Const General: healthy appearing, comfortable, no acute distress, alert and awake Nutritional Appearance: well nourished Orientation/consciousness: patient oriented x3 HENMT Head: Yes normocephalic and Yes atraumatic Eyes Eyelids: Yes eyelids normal Conjunctivae: conjunctivae normal Sclerae: sclerae normal Corneas: corneas normal Pupils: Equal, round and reactive pupils present EOM: EOMs intact bilaterally Neck Neck: Yes full ROM Resp Effort & Inspection: normal respiratory effort, able to speak in complete sentences and not labored Cardio Rate: regular rate Rhythm: regular rhythm GI Inspection: No distended Palpation (GI): Soft to palpation, not firm and not rigid Skin General skin exam: elasticity normal Neuro General: patient oriented x3 Cranial nerves: Yes Equal, round and reactive pupils present and Yes Bilaterally intact EOM present Cognition (Neuro): normal cognition Extrem Other: Moving all extremities well without any obvious deformities Course Course Course Narrative: This is a Rapid Medical Examination (RME) performed by Loren Bansal PA-C in triage. Full HPI, ROS, assessment and treatment plan per primary provider in the Main ED. 28 yo female with history of ectopic last September s/p surgery who presents to the ER for evaluation of lower abdominal pain x1 week, slowly getting worse. went to clinic yesterday and told she may have UTI, started on abx. has been spotting with red, pink and brown discharge for the last 5 weeks. has been nauseated but not vomiting. Plan: lab workup, UA, imaging per main provider. Reevaluation(s) Reevaluation #1: Discussed patient's imaging results with her including the ultrasound shows multiple ovarian cyst. She does have appropriate follow-up with OBGYN. She will call the office of Dr. Simon tomorrow to schedule follow-up Time: 21:21 Medical Decision Making Medical Decision Making [facility] Narrative: 28-year-old female presents for evaluation lower abdominal pain with abnormal vaginal bleeding for about 1 month. On exam she has tender in the suprapubic region mostly central. Her pain does not lateralize to either side. She has no upper abdominal pain. She has no significant anemia, no leukocytosis or left shift. This makes infectious pathology less likely. Her chemistries are within normal limits, she is not . She has an ultrasound pending to evaluate for ovarian cyst uterine fibroids and to rule out ovarian torsion but I feel this is less likely given the duration of the symptoms. A CT scan was also ordered from triage. I have a lower suspicion for acute appendicitis the patient has no GI symptoms and given the duration of the symptoms over a month. Differential Diagnosis Differential Diagnoses: The differential diagnosis associated with the presentation includes Abdominal pain Constipation Dysmenorrhea Ectopic Endometriosis Uterine fibroids Ovarian cyst Lab Data [facility] Lab Attestation statement: I reviewed the patient's lab results. Please see medical decision making above 11/28/23 14:52 11/28/23 14:52 Labs: Lab Results 11/28/23 Range/Units 14:52 WBC 6.3 (4.8-10.8) X10*3/uL RBC 4.13 L (4.20-5.50) X10*6/uL Hgb 13.9 (12.0-16.0) g/dl Hct 38.9 (37.0-47.0) % MCV 94.2 (80.0-98.0) fL MCH 33.7 H (27.0-33.0) pg MCHC 35.7 H (31.0-35.0) g/dl RDW 11.5 (11.0-16.0) % Plt Count 220 D (160-400) X10*3/uL MPV 10.8 (9.4-12.3) fL Immature Gran % (Auto) 0.5 H (0.0-0.4) % Neut % (Auto) 65.4 (45-73) % Lymph % (Auto) 27.7 (20-40) % [place] % (Auto) 5.4 (2-11) % Eos % (Auto) 0.5 (0-4) % Baso % (Auto) 0.5 (0-2) % Lymph # (Auto) 1.7 (1.2-4.9) X10*3/uL [place] # (Auto) 0.3 (0.1-1.2) X10*3/uL Eos # (Auto) 0.0 (0.0-0.4) X10*3/uL Baso # (Auto) 0.0 (0.0-0.2) X10*3/uL Abs Immat Gran (auto) 0.03 (0.00-0.03) X10*3/uL Absolute Neuts (auto) 4.1 (2.0-8.3) x10*3/uL Absolute Nucleated RBC 0.000 (0.0-0.012) X10*3/uL Nucleated RBC % (auto) 0.0 (0.0-0.2) /100WBC Sodium 139 (135-145) mmol/L Potassium 3.8 (3.3-5.1) mmol/L Chloride 108 (96-108) mmol/L Carbon Dioxide 26 (22-29) mmol/L Anion Gap 9 L (12-20) BUN 7 L (9-16) mg/dL Creatinine 0.77 (0.5-1.4) mg/dL Estim Creat Clear Calc 74.8 Estimated GFR > 60 Random Glucose 84 (60-115) mg/dL Calcium 9.4 (8.4-10.2) mg/dL Magnesium 2.3 (1.6-2.6) mg/dL Total Bilirubin 0.8 (0.0-1.0) mg/dL Direct Bilirubin 0.2 (0.0-0.5) mg/dL AST 13 (5-31) U/L ALT 12 (0-31) U/L Alkaline Phosphatase 56 (39-117) U/L Total Protein 6.7 (6.5-8.0) g/dL Albumin 4.6 (3.5-5.0) g/dL Lipase 14 (8-78) U/L Beta HCG, Quant < 2 mIU/mL Urine Color Yellow Urine Appearance Clear Urine pH 6.5 (5.0-9.0) Ur Specific [place] 1.010 (1.005-1.025) Urine Protein Negative (Neg-Trace) mg/dL Urine Glucose (UA) Negative (Negative) mg/dL Urine Ketones Negative (Negative) mg/dL Urine Blood Negative (Negative) Urine Nitrite Negative (Negative) Ur Leukocyte Esterase Negative (Negative) Urine Test NEGATIVE (NEGATIVE) Radiology Impression Discussion of test interpretation with radiology: I have reviewed the radiologist's reading. Radiologist Impression: CT/CT abdomen pelvis w IV con IMPRESSION: No acute abnormality CT scan abdomen pelvis. Fleischner guidelines were followed US/US pelvic and transvaginal IMPRESSION: 1. Anechoic cyst in right ovary measuring 4.9 cm. 2. Multiple follicles/cysts in left ovary. Largest measuring 2.6 cm. Medications Administered Discontinued Medications Generic Name Dose Route Start Last Admin Trade Name Freq PRN Reason Stop Dose Admin Iohexol 100 ml 11/28/23 18:44 11/28/23 18:47 Iohexol 350 Mg/Ml 100 Ml Infus..Btl IV 11/28/23 18:45 85 ml ONCE ONE Administration Discharge Plan Discharge Clinical Impression: Abdominal pain, Dysmenorrhea, Ovarian cyst Patient Disposition: Home, Self-Care Instructions: Ovarian Cyst (ED) Additional Instructions: Your CT scan did not show any concerning findings. You are definitely not . Your blood work was also reassuring. Your ultrasound showed multiple ovarian cysts with the largest being on the right ovary but multiple small ones in the left Follow-up with [facility], call tomorrow to schedule an appointment US/US pelvic and transvaginal IMPRESSION: 1. Anechoic cyst in right ovary measuring 4.9 cm. 2. Multiple follicles/cysts in left ovary. Largest measuring 2.6 cm. Prescriptions: No Action epinephrine [EpiPen] 0.3 mg/0.3 mL auto-injector 0.3 mg IM Q4H PRN (Reason: anaphylaxis) Qty: 2 0RF prednisone 20 mg tablet 40 mg PO DAILY 5 Days Qty: 10 0RF naproxen 500 mg tablet 500 mg PO BID PRN (Reason: pain) 7 Days Qty: 14 0RF cyclobenzaprine 10 mg tablet 10 mg PO TID PRN (Reason: muscle spasm) 7 Days Qty: 21 0RF Rx Instructions: Side effects his drowsiness. Do not take at work or while driving folic acid 400 mcg tablet 400 mcg PO DAILY Qty: 90 0RF pyridoxine (vitamin B6) [Vitamin B-6] 25 mg tablet 25 mg PO tid PRN (Reason: nausea) 30 Days Qty: 90 3RF Rx Instructions: may take every 6 - 8 hours for nausea Stand Alone Forms: Work/School Release Print Language: [place]
[2023-11-28 15:09] LABS: MANUAL DIFF FLAG NO
[2023-11-28 15:15] LABS: Basophils Percent Auto 0.5 % (0-2); Eosinophils Percent Auto 0.5 % (0-4); Hematocrit 38.9 % (37.0-47.0); Hemoglobin 13.9 g/dl (12.0-16.0); Imm Gran Abs Auto 0.03 X10*3/uL (0.00-0.03); Imm Gran Pct Auto 0.5 % (0.0-0.4); Lymphocytes Absolute Auto 1.7 X10*3/uL (1.2-4.9); Lymphocytes Percent Auto 27.7 % (20-40); Mean Corpuscular HGB Conc 35.7 g/dl (31.0-35.0); Mean Corpuscular Hemoglobin 33.7 pg (27.0-33.0); Mean Corpuscular Volume 94.2 fL (80.0-98.0); Mean Platelet Volume 10.8 fL (9.4-12.3); Monocytes Absolute Auto 0.3 X10*3/uL (0.1-1.2); Monocytes Percent Auto 5.4 % (2-11); Neutrophils Absolute Auto 4.1 x10*3/uL (2.0-8.3); Neutrophils Percent Auto 65.4 % (45-73); Platelet Count 220 X10*3/uL (160-400); Red Blood Count 4.13 X10*6/uL (4.20-5.50); Red Cell Distribution Width 11.5 % (11.0-16.0); White Blood Count 6.3 X10*3/uL (4.8-10.8)
[2023-11-28 15:22] LABS: Appearance Urine Clear; Color Urine Yellow; Glucose Urine UA Negative (Negative); Leukocyte Esterase Urine Negative (Negative); Nitrite Urine Negative (Negative); PH 6.5 (5.0-9.0); UPreg QC Valid YES; Urine Blood Negative (Negative); Urine Ketones Negative (Negative); Urine Pregnancy NEGATIVE (NEGATIVE); Urine Protein Negative (Neg-Trace)
[2023-11-28 15:33] LABS: Alanine Aminotransferase 12 U/L (0-31); Albumin Level 4.6 g/dL (3.5-5.0); Alkaline Phosphatase 56 U/L (39-117); Anion Gap 9 (12-20); Aspartate Amino Transferase 13 U/L (5-31); Bilirubin Direct 0.2 mg/dL (0.0-0.5); Bilirubin Total 0.8 mg/dL (0.0-1.0); Blood Urea Nitrogen 7 mg/dL (9-16); Calcium 9.4 mg/dL (8.4-10.2); Carbon Dioxide 26 mmol/L (22-29); Chloride 108 mmol/L (96-108); Creatinine Clr Calc Pharmacy 74.8; Estimated Glomerular Filt Rate > 60; Glucose Random 84 mg/dL (60-115); Lipase 14 U/L (8-78); Magnesium 2.3 mg/dL (1.6-2.6); Potassium 3.8 mmol/L (3.3-5.1); Sodium 139 mmol/L (135-145); Total Protein 6.7 g/dL (6.5-8.0)
[2023-11-28 15:35] LABS: HCG Quantitative < 2 mIU/mL
[2023-11-28] MEDS: iohexoL 350 MG/ML 100 ML INFUS..BTL IV (18:47)
[2023-11-28 20:12] VITALS: BP 141/83; PULSE 59; RESP 18; TEMP 36.6; O2SAT 99
--- NOTE | 2023-11-28 20:26 | PC.NURSE ---
patient a&ox3, vss, pt awaiting ultrasound and CT scan results, call borges within reach, will continue to monitor
--- NOTE | 2023-11-28 20:42 | PC.NURSE ---
patient inquiring about her us and ct scan results, this nurse looked and noted that the results have not yet posted, this nurse notified the patient.
[2023-11-28 21:32] VITALS: BP 139/86; PULSE 59; RESP 18; TEMP 36.6; O2SAT 99
[2023-11-28 21:38] VITALS: BP 139/86; PULSE 59; RESP 18; TEMP 36.6; O2SAT 99
== END 2023-11-28 21:39 | disposition home or self-care (01) ==
PROVIDERS: Physician Assistant; Emergency Provider Emergency Medicine
DX: N83.291 Other ovarian cyst, right side (principal); N94.6 Dysmenorrhea, unspecified; R10.30 Lower abdominal pain, unspecified; J45.909 Unspecified asthma, uncomplicated; F17.210 Nicotine dependence, cigarettes, uncomplicated
CPT/HCPCS: 36415; 74177; 76830; 76856; 80048; 80076; 81003; 81025; 83690; 83735; 84702; 85025; 93975; 99283; 99284; Q9967

== ENCOUNTER 2023-12-11 13:23 | Outpatient (AMB) | payer MEDICAID, SELFPAY ==
[2023-12-11 13:31] VITALS: BMI 20.9
--- NOTE | 2023-12-11 13:31 | MHC.OFFVIS ---
Vital Signs 12/11/23 13:31 Height 4 ft 11 in Weight 103 lb 9.876 oz BMI 20.9 Intake Visit Reasons: Er follow up Supervisor Lime Required: No Information Interpreted: non-clinical & clinical Production Support Supervisor: Production Support Supervisor Present (Stephanie Gallagher DELORES) Accompanied by: Self / Same As Patient Allergies [place] And Derivatives [CITRUS] Allergy (Unknown, Verified 12/11/23 13:34) HIVES diphenhydramine [From BENADRYL] Allergy (Unknown, Verified 12/11/23 13:34) THROAT CLOSED UP orange [ORANGE] Allergy (Unknown, Verified 12/11/23 13:34) HIVES NERDS CANDY Allergy (Unknown, Uncoded 12/11/23 13:34) FACIAL SWELLING, HIVES HPI Comments Details: Presenting for ER follow-up. The patient went to the emergency room on 11/28/2023 complaining of abdominal pain and a 1 week history of spotting. The following workup was done emergency room: H&H 13.9/38.9, hCG was less than 2. GC/CT done on 11/27/2023 was negative Pelvic ultrasound was done and showed the following: UTERUS: Unremarkable. Uterus is anteverted. Endometrial thickness 0.8 cm. Uterus measures 7.2 x 3.8 x 4.1 cm ADNEXA: Ovarian vascularity:Doppler demonstrates both arterial and venous vascular flow in the right and left ovary. No evidence of ovarian torsion. Right Ovary: Anechoic cyst in right ovary measuring 4.9 x 2.9 x 4 cm.. 5.4 x 3.1 x 4.7 cm. Volume 41.2 mL. Left Ovary: Multiple follicles/cysts. Largest measuring 2.6 cm. Left ovary measures 4.1 x 2.2 x 3.4 cm. Volume 16.1 mL Cul-de-sac: No Fluid CT scan of abdomen and pelvis showed the following: PELVIC VISCERA: Uterus is anteverted. Crenulated follicle consistent with corpus luteum cyst left ovary. Fluid attenuating cyst measuring 5 cm in the right ovary. No follow-up imaging recommended. Small volume of fluid in the cul-de-sac. Since then the patient has been doing well with no complaints, her pelvic pain has resolved completely. [facility] Medical History Asthma Family History Mother Pancreatic cancer Father Lung cancer Paternal Aunt Breast cancer Social History Household Members: Significant Other Housing: House Alcohol intake: never Patient Tobacco Use Status: Current everyday Tobacco user Cigarettes Per Day: 1 Current occupational status: unemployed Sexual orientation: Straight/Heterosexual Gender identity: Female Review of Systems Const All systems reviewed & are unremarkable except as noted in HPI and below Reports as per HPI and Reports no additional complaints GI Reports no additional complaints Reports no additional complaints Physical Exam Vital Signs: BMI result Body Mass Index 20.9 GI Inspection: Yes normal to inspection Palpation (GI): Soft to palpation and nontender Percussion: Yes normal to percussion Auscultation: normal bowel sounds Results AMB Test Urine AMB Test Urine Negative Last Edit by Stephanie Gallagher CMA on 12/11/23 13:44 Assessment & Plan Assessment & Plan (1) Ovarian cyst: Code(s): N83.209 - Unspecified ovarian cyst, unspecified side Category: Medical Plan: Urine test done in the office was negative. Discussed with the patient the workup done in the emergency room including pelvic ultrasound and CT scan showing right simple ovarian cyst. Since the ovarian cyst is =<5 cm and simple and the patient has symptoms have completely resolved, signs and symptoms of ovarian rupture and or torsion were discussed with the patient, she is to go to the emergency or call in case of abdominal/pelvic pain. All questions answered, the patient verbalized understanding Orders: Orders AMB HCG Urine Test Today Z32.02 - Encounter for test, result negative Coding Level of Care Code Est Pt Level 3 (21252) Diagnoses Ovarian cyst N83.209
== END 2023-12-11 14:03 | disposition home or self-care (01) ==
PROVIDERS: Referring Provider Internal Medicine; Visit Provider Obstetrics & Gynecology
DX: Z32.02 Encounter for pregnancy test, result negative (principal); N83.209 Unspecified ovarian cyst, unspecified side
CPT/HCPCS: 99213

== ENCOUNTER → 2023-12-11 13:23 | Outpatient (BNVA) | payer MEDICAID, SELFPAY | PROVIDERS: Visit Provider Obstetrics & Gynecology | DX: N83.209 Unspecified ovarian cyst, unspecified side (principal); R10.9 Unspecified abdominal pain; Z32.02 Encounter for pregnancy test, result negative | CPT/HCPCS: 81025; 99212 ==